=== PATIENT | female | born 1945 | race Two or more races ===

== ENCOUNTER → 2022-04-08 | Outpatient (CLI) | payer OTHER ==
[2022-04-08 07:56] LABS: Urine Blood 3+ /uL (Negative); Urine Specific Gravity 1.018 (1.001-1.035)
[2022-04-08 08:03] LABS: Basophils # (auto) 0 10 ^3/uL (0-0.2); Basophils % (auto) 0.6 % (0.0-2.0); Eosinophils # (auto) 0.2 10 ^3/uL (0-0.8); Eosinophils % (auto) 2.2 % (0.0-7.0); Hematocrit 37.8 % (36.0-46.0); Hemoglobin 12.6 g/dL (12.2-16.2); Lymphocytes # (auto) 1.6 10 ^3/uL (0.4-5.4); Lymphocytes % (auto) 22.5 % (10.0-50.0); Mean Corpuscular Hemoglobin 30.9 pg (28.0-32.0); Mean Corpuscular Hgb Conc. 33.4 g/dL (32.0-36.0); Mean Corpuscular Volume 92.6 fL (80.0-100.0); Monocytes # (auto) 0.6 10 ^3/uL (0-1.3); Monocytes % (auto) 8.6 % (0.0-12.0); Neutrophils # (auto) 4.8 10 ^3/uL (1.6-8.6); Neutrophils % (auto) 66.1 % (37.0-80.0); Red Blood Cells 4.08 10^6/uL (4.0-5.20); Red Cell Distribution Width 13.9 % (11.8-14.3); White Blood Cell 7.3 10^3/uL (4.4-10.8)
[2022-04-08 08:23] LABS: Potassium 4.6 mmol/L (3.5-5.1)
[2022-04-08 08:37] LABS: Albumin 3.3 g/dL (3.4-5.0); BUN/Creatinine Ratio 23.9; Bilirubin, Total 0.6 mg/dL (0.2-1.0); Calcium 9.2 mg/dL (8.5-10.1); Total Protein 7.6 g/dL (6.4-8.2)
== END | disposition home or self-care (01) ==
LOC: LAB 07:21
PROVIDERS: ATTEND Internal Medicine
DX: I10 Essential (primary) hypertension (principal); E78.5 Hyperlipidemia, unspecified
CPT/HCPCS: 36415; 80053; 80061; 81001; 83036; 84439; 84443; 85025

== ENCOUNTER → 2022-09-30 | Outpatient (CLI) | payer OTHER ==
[~2022-09-30] MED LIST: ALBUAER3 IN; AZIT500T66 PO; BENZ100C97 PO; DOXY100T2; LOSA25TA15 PO; PRAV20TA3 PO; PRED20TA2 PO
== END | disposition home or self-care (01) ==
LOC: LAB 15:27
PROVIDERS: ATTEND Internal Medicine
DX: Z01.10 Encounter for examination of ears and hearing without abnormal findings (principal)
CPT/HCPCS: 36415; 82565; 84520

== ENCOUNTER → 2022-10-09 | Outpatient (CLI) | payer OTHER | END | disposition home or self-care (01) | LOC: LAB 15:24 | PROVIDERS: ATTEND Internal Medicine | DX: Z01.812 Encounter for preprocedural laboratory examination (principal) | CPT/HCPCS: 36415; 82565; 84520 ==

== ENCOUNTER 2022-12-18 10:30 | Emergency (ER) | payer OTHER ==
[~2022-12-18] VITALS: Ht 149.9 cm; Wt 69.1 kg
[2022-12-18 11:46] LABS: Urine Bacteria NONE SEEN /hpf (None Seen); Urine Blood 2+ /uL (Negative); Urine Clarity Clear (Clear); Urine Color Yellow (Yellow); Urine Protein, UAD Negative (Negative); Urine Specific Gravity 1.019 (1.001-1.035); Urine Urobilinogen Normal (Negative); Urine WBC 1 /hpf (0 - 5)
[2022-12-18 12:21] LABS: Basophils # (auto) 0 10 ^3/uL (0-0.2); Basophils % (auto) 0.5 % (0.0-2.0); Eosinophils # (auto) 0.1 10 ^3/uL (0-0.8); Eosinophils % (auto) 1.1 % (0.0-7.0); Hematocrit 44.9 % (36.0-46.0); Hemoglobin 14.9 g/dL (12.2-16.2); Lymphocytes % (auto) 15.5 % (10.0-50.0); Mean Corpuscular Hemoglobin 31.2 pg (28.0-32.0); Mean Corpuscular Hgb Conc. 33.1 g/dL (32.0-36.0); Mean Corpuscular Volume 94.4 fL (80.0-100.0); Monocytes # (auto) 0.9 10 ^3/uL (0-1.3); Monocytes % (auto) 14.5 % (0.0-12.0); Neutrophils # (auto) 4.4 10 ^3/uL (1.6-8.6); Neutrophils % (auto) 68.4 % (37.0-80.0); Red Blood Cells 4.76 10^6/uL (4.0-5.20); Red Cell Distribution Width 13.8 % (11.8-14.3); White Blood Cell 6.4 10^3/uL (4.4-10.8)
[2022-12-18 13:17] LABS: Alanine Aminotransferase 14 U/L (7-40); Albumin 4.8 g/dL (3.2-4.8); Alkaline Phosphatase 129 U/L (46-116); Anion Gap 7.6 (5-15); Aspartate Aminotransferase 21 U/L (13-40); BUN/Creatinine Ratio 13.1 (10.0-20.0); Bilirubin, Total 0.5 mg/dL (0.2-1.0); Blood Urea Nitrogen 8 mg/dL (9-23); Calcium 9.5 mg/dL (8.5-10.1); Carbon Dioxide 27.4 mmol/L (20-30); Chloride 104 mmol/L (98-107); Glucose 87 mg/dL (74-106); Potassium 3.9 mmol/L (3.5-5.1); Sodium 139 mmol/L (136-145); Total Protein 7.9 g/dL (5.7-8.2)
[2022-12-18 16:09] LABS: Rapid Strep A Screen-Throat Negative
[2022-12-18 16:24] LABS: COVID19 ANTIGEN SOFIA FIA NEGATIVE (NEGATIVE); Rapid Influenza A Negative (Negative); Rapid Influenza B Negative (Negative)
[2022-12-18] MEDS ORDERED: SODIUM CHLORIDE 0.9% 1,000 ML IV ONE (16:45)
[2022-12-18] MEDS ORDERED: DexAMETHasone SOD PHOS 10MG/1ML VIAL INJ IM ONE (17:00)
[2022-12-18] MEDS ORDERED: ACETAMINOPHEN 325 MG TAB PO ONE (17:00)
[2022-12-18 18:54] VITALS: BP 143/71; PULSE 81; RESP 17; TEMP 98.3; O2SAT 97
== END 2022-12-18 19:00 | disposition home or self-care (01) ==
LOC: ER 10:30
DX: J02.9 Acute pharyngitis, unspecified (principal); I10 Essential (primary) hypertension; R50.9 Fever, unspecified; E78.5 Hyperlipidemia, unspecified; Z20.822 Contact with and (suspected) exposure to COVID-19
CPT/HCPCS: 36415; 71045; 80053; 81001; 83605; 84484; 85025; 87040; 87070; 87426; 87804; 87880; 93005; 96360; 96372; 99285; J1100; J7030

== ENCOUNTER 2022-12-25 16:41 | Inpatient (IN) | payer OTHER ==
[~2022-12-25] VITALS: Ht 149.9 cm
[2022-12-25 18:03] LABS: Basophils # (auto) 0 10 ^3/uL (0-0.2); Basophils % (auto) 0.1 % (0.0-2.0); Eosinophils # (auto) 0.1 10 ^3/uL (0-0.8); Eosinophils % (auto) 0.4 % (0.0-7.0); Hematocrit 42.5 % (36.0-46.0); Hemoglobin 14.4 g/dL (12.2-16.2); Lymphocytes # (auto) 2.2 10 ^3/uL (0.4-5.4); Lymphocytes % (auto) 15.8 % (10.0-50.0); Mean Corpuscular Hemoglobin 31.4 pg (28.0-32.0); Mean Corpuscular Hgb Conc. 33.8 g/dL (32.0-36.0); Monocytes # (auto) 1.1 10 ^3/uL (0-1.3); Monocytes % (auto) 7.9 % (0.0-12.0); Neutrophils # (auto) 10.6 10 ^3/uL (1.6-8.6); Neutrophils % (auto) 75.8 % (37.0-80.0); Red Blood Cells 4.57 10^6/uL (4.0-5.20); Red Cell Distribution Width 13.9 % (11.8-14.3)
[2022-12-25 18:40] LABS: Urine Bacteria NONE SEEN /hpf (None Seen); Urine Blood 2+ /uL (Negative); Urine Clarity Clear (Clear); Urine Color Colorless (Yellow); Urine Protein, UAD Negative (Negative); Urine Specific Gravity 1.003 (1.001-1.035); Urine Urobilinogen Normal (Negative); Urine WBC 1 /hpf (0 - 5); Urine pH 6.5 (5.0-8.0)
[2022-12-25 18:49] LABS: Alanine Aminotransferase 10 U/L (7-40); Alkaline Phosphatase 121 U/L (46-116); Anion Gap 5.9 (5-15); Aspartate Aminotransferase 12 U/L (13-40); BUN/Creatinine Ratio 10.6 (10.0-20.0); Blood Urea Nitrogen 7 mg/dL (9-23); Calcium 9.5 mg/dL (8.7-10.4); Carbon Dioxide 25.1 mmol/L (20-30); Chloride 104 mmol/L (98-107); Glucose 106 mg/dL (74-106); Sodium 135 mmol/L (136-145)
[2022-12-25 18:50] LABS: Albumin 4.9 g/dL (3.2-4.8)
[2022-12-25 19:04] LABS: Magnesium 2.1 mg/dL (1.6-2.6)
[2022-12-25 19:47] LABS: COVID19 ANTIGEN SOFIA FIA NEGATIVE (NEGATIVE); Rapid Influenza A Negative (Negative); Rapid Influenza B Negative (Negative)
[2022-12-25] MEDS ORDERED: IOHEXOL 350 MG/ML 100ML IJ ONE (20:21)
[2022-12-25] MEDS ORDERED: NITROGLYCERIN 0.4 MG SL TAB SL ONE (20:30)
[2022-12-25] MEDS ORDERED: ASPirin 325 MG TAB PO ONE (20:30)
[2022-12-25] MEDS ORDERED: DexAMETHasone SOD PHOS 10MG/1ML VIAL INJ IV ONE (21:45)
[2022-12-25] MEDS ORDERED: guaiFENesin 200 MG/10 ML UD GT PRN (23:00)
[2022-12-25] MEDS ORDERED: HYDROcodone-ACET 5/325MG TAB PO PRN (23:00)
[2022-12-25] MEDS ORDERED: HYDROcodone-ACET 10/325MG TAB PO PRN (23:00)
[2022-12-25] MEDS ORDERED: ACETAMINOPHEN 325 MG TAB PO PRN (23:00)
[2022-12-25] MEDS ORDERED: AZITHROMYCIN 500MG/ 250ML 250 ML IV ONE (23:00)
[2022-12-25] MEDS ORDERED: ACETAMINOPHEN 325 MG TAB PO ONE (23:00)
[2022-12-26] VITALS (10 sets, daily range): BP systolic 118–133; BP diastolic 74–78; PULSE 64–102; RESP 14–20; TEMP 98.1–98.3; O2SAT 92–100
[2022-12-26] MEDS: IPRATROPIUM BROM 0.5 MG/2.5ML INH SOL NEB SCH ×3 (06:01→18:51)
[2022-12-26] MEDS: ALBUTEROL SULF 2.5 MG/0.5ML(0.5%) NEB SOLN NEB SCH ×3 (06:01→18:51)
[2022-12-26 06:56] LABS: Basophils # (auto) 0 10 ^3/uL (0-0.2); Basophils % (auto) 0.1 % (0.0-2.0); Eosinophils # (auto) 0 10 ^3/uL (0-0.8); Eosinophils % (auto) 0.2 % (0.0-7.0); Hematocrit 41.7 % (36.0-46.0); Lymphocytes # (auto) 1.2 10 ^3/uL (0.4-5.4); Lymphocytes % (auto) 11.5 % (10.0-50.0); Mean Corpuscular Hemoglobin 31.3 pg (28.0-32.0); Mean Corpuscular Hgb Conc. 33.4 g/dL (32.0-36.0); Mean Corpuscular Volume 93.7 fL (80.0-100.0); Monocytes # (auto) 0.2 10 ^3/uL (0-1.3); Monocytes % (auto) 1.6 % (0.0-12.0); Neutrophils # (auto) 9.1 10 ^3/uL (1.6-8.6); Neutrophils % (auto) 86.6 % (37.0-80.0); Nucleated Red Blood Cells % 0.1 %; Red Blood Cells 4.46 10^6/uL (4.0-5.20); White Blood Cell 10.5 10^3/uL (4.4-10.8)
[2022-12-26 07:03] LABS: Albumin 4.8 g/dL (3.2-4.8); Alkaline Phosphatase 118 U/L (46-116); Anion Gap 6.6 (5-15); Aspartate Aminotransferase 10 U/L (13-40); BUN/Creatinine Ratio 8.2 (10.0-20.0); Blood Urea Nitrogen 8 mg/dL (9-23); Calcium 9.6 mg/dL (8.7-10.4); Carbon Dioxide 27.4 mmol/L (20-30); Chloride 103 mmol/L (98-107); Cholesterol 175 mg/dL (< 200); Glucose 134 mg/dL (74-106); LDL Cholesterol 121 mg/dL (< 100); Sodium 137 mmol/L (136-145); Triglycerides 93 mg/dL (< 150)
[2022-12-26 07:04] LABS: Bilirubin, Total 1.2 mg/dL (0.2-1.0); Total Protein 7.9 g/dL (5.7-8.2)
[2022-12-26 07:12] LABS: Alanine Aminotransferase 9 U/L (7-40)
[2022-12-26 07:24] LABS: HDL Cholesterol 54 mg/dL (40-59)
[2022-12-26] MEDS ORDERED: methylPREDNISolone SOD SUCC 40 MG/ML VL IV SCH ×2 (10:00→22:00)
[2022-12-26] MEDS: PANTOPRAZOLE 40 MG TAB PO SCH (10:28)
[2022-12-26 13:08] LABS: INR 1.08 (0.9-1.15); Prothrombin Time 11.3 sec (9.3-11.8)
[2022-12-26] MEDS ORDERED: ATORVASTATIN 20 MG TAB PO SCH (22:00)
[2022-12-26] MEDS ORDERED: AZITHROMYCIN 500MG/ 250ML 250 ML IV SCH (22:00)
[2022-12-26] MEDS ORDERED: PRAVASTATIN SODIUM 20 MG TAB PO SCH (22:00)
[2022-12-27 05:00] VITALS: BP 103/54; PULSE 73; RESP 16; TEMP 98.1; O2SAT 94
[2022-12-27 06:41] LABS: Basophils # (auto) 0 10 ^3/uL (0-0.2); Eosinophils # (auto) 0 10 ^3/uL (0-0.8); Hematocrit 41.3 % (36.0-46.0); Hemoglobin 13.7 g/dL (12.2-16.2); Lymphocytes # (auto) 1.1 10 ^3/uL (0.4-5.4); Lymphocytes % (auto) 6.3 % (10.0-50.0); Mean Corpuscular Hgb Conc. 33.2 g/dL (32.0-36.0); Mean Corpuscular Volume 93.5 fL (80.0-100.0); Monocytes # (auto) 0.5 10 ^3/uL (0-1.3); Monocytes % (auto) 2.6 % (0.0-12.0); Neutrophils # (auto) 16.1 10 ^3/uL (1.6-8.6); Neutrophils % (auto) 91.1 % (37.0-80.0); Red Blood Cells 4.42 10^6/uL (4.0-5.20); Red Cell Distribution Width 13.7 % (11.8-14.3); White Blood Cell 17.7 10^3/uL (4.4-10.8)
[2022-12-27 06:48] LABS: Alanine Aminotransferase 10 U/L (7-40); Alkaline Phosphatase 111 U/L (46-116); Anion Gap 9.6 (5-15); BUN/Creatinine Ratio 22.1 (10.0-20.0); Blood Urea Nitrogen 15 mg/dL (9-23); Calcium 9.8 mg/dL (8.7-10.4); Carbon Dioxide 22.4 mmol/L (20-30); Chloride 106 mmol/L (98-107); Glucose 144 mg/dL (74-106); Potassium 4.1 mmol/L (3.5-5.1); Sodium 138 mmol/L (136-145)
[2022-12-27 06:49] LABS: Albumin 4.7 g/dL (3.2-4.8); Aspartate Aminotransferase < 8 U/L (13-40); Bilirubin, Total 0.6 mg/dL (0.2-1.0); Total Protein 7.7 g/dL (5.7-8.2)
[2022-12-27 07:27] LABS: Magnesium 2.3 mg/dL (1.6-2.6)
[2022-12-27 08:00] VITALS: BP 149/76; PULSE 72; RESP 14; TEMP 97.9; O2SAT 93
[2022-12-27 08:30] VITALS: PULSE 85; RESP 16; O2SAT 95
[2022-12-27] MEDS: IPRATROPIUM BROM 0.5 MG/2.5ML INH SOL NEB SCH ×2 (08:30→12:45)
[2022-12-27] MEDS: ALBUTEROL SULF 2.5 MG/0.5ML(0.5%) NEB SOLN NEB SCH ×2 (08:30→12:45)
[2022-12-27 08:37] VITALS: PULSE 84; RESP 18; O2SAT 99
[2022-12-27 09:16] LABS: Erythrocyte Sedimentation Rate 44 mm/hr (0-20)
[2022-12-27] MEDS: PANTOPRAZOLE 40 MG TAB PO SCH (09:55)
[2022-12-27] MEDS ORDERED: predniSONE 20 MG TAB PO SCH (10:00)
[2022-12-27] MEDS ORDERED: PRED20TA2 PO (11:28)
[2022-12-27 12:00] VITALS: BP 129/64; PULSE 90; RESP 22; TEMP 98.1; O2SAT 93
[2022-12-27 16:00] VITALS: BP 117/66; PULSE 84; RESP 18; TEMP 98.1; O2SAT 94
== END 2022-12-27 17:30 | disposition home or self-care (01) | DRG 196 ==
LOC: ER 16:41 → OVERFLOW 22:58 → CENTRAL 12-26 14:46
PROVIDERS: ADMIT Nurse Practitioner Family; ATTEND Internal Medicine Pulmonary Disease
DX: J84.10 Pulmonary fibrosis, unspecified (principal); J96.21 Acute and chronic respiratory failure with hypoxia; J06.9 Acute upper respiratory infection, unspecified; E78.5 Hyperlipidemia, unspecified; Z20.822 Contact with and (suspected) exposure to COVID-19; I99.8 Other disorder of circulatory system; I27.20 Pulmonary hypertension, unspecified; Z88.8 Allergy status to other drugs, medicaments and biological substances
CPT/HCPCS: 36415; 71046; 71250; 80053; 80061; 81001; 82550; 83605; 83690; 83735; 84443; 84484; 85025; 85379; 85610; 85652; 86308; 87040; 87426; 87804; 93970; 94640; G0378; J1100

== ENCOUNTER → 2023-03-11 | Outpatient (CLI) | payer OTHER ==
[~2023-03-11] MED LIST changes: -ALBUAER3 IN; +ALBUTEROL MEDNEB 2.5 mg/3ml NEB ONE; -AZIT500T66 PO; -BENZ100C97 PO; -DOXY100T2; -LOSA25TA15 PO
== END | disposition home or self-care (01) ==
LOC: RT 10:58
PROVIDERS: ATTEND Internal Medicine Pulmonary Disease
DX: J84.10 Pulmonary fibrosis, unspecified (principal); R06.09 Other forms of dyspnea
CPT/HCPCS: 94060; 94727; 94729

== ENCOUNTER 2023-04-26 18:33 | Emergency (ER) | payer OTHER ==
[~2023-04-26] VITALS: Ht 149.9 cm; Wt 70.5 kg
[~2023-04-26 18:33] MED LIST changes: -ALBUTEROL MEDNEB 2.5 mg/3ml NEB ONE
[2023-04-26] MEDS ORDERED: LABETALOL HCL 5 MG/ML 4ML SYRINGE IV ONE (19:45)
[2023-04-26 19:52] VITALS: TEMP 98.1
[2023-04-26 19:54] LABS: Basophils # (auto) 0 10 ^3/uL (0-0.2); Basophils % (auto) 0.4 % (0.0-2.0); Eosinophils # (auto) 0.2 10 ^3/uL (0-0.8); Eosinophils % (auto) 1.7 % (0.0-7.0); Hematocrit 44.6 % (36.0-46.0); Hemoglobin 14.6 g/dL (12.2-16.2); Lymphocytes # (auto) 1.8 10 ^3/uL (0.4-5.4); Lymphocytes % (auto) 20.6 % (10.0-50.0); Mean Corpuscular Hemoglobin 30.9 pg (28.0-32.0); Mean Corpuscular Hgb Conc. 32.7 g/dL (32.0-36.0); Mean Corpuscular Volume 94.5 fL (80.0-100.0); Monocytes # (auto) 0.7 10 ^3/uL (0-1.3); Monocytes % (auto) 8.4 % (0.0-12.0); Neutrophils # (auto) 6.1 10 ^3/uL (1.6-8.6); Neutrophils % (auto) 68.9 % (37.0-80.0); Nucleated Red Blood Cells % 0.1 %; Red Blood Cells 4.72 10^6/uL (4.0-5.20); Red Cell Distribution Width 13.8 % (11.8-14.3); White Blood Cell 8.8 10^3/uL (4.4-10.8)
[2023-04-26] MEDS ORDERED: MECLIZINE HCL 25 MG TAB PO ONE (20:00)
[2023-04-26 20:05] VITALS: PULSE 93; RESP 25; O2SAT 95
[2023-04-26 20:11] LABS: Alanine Aminotransferase 11 U/L (7-40); Albumin 4.9 g/dL (3.2-4.8); Alkaline Phosphatase 120 U/L (46-116); Anion Gap 11 (5-15); Aspartate Aminotransferase 18 U/L (13-40); BUN/Creatinine Ratio 15.4 (10.0-20.0); Bilirubin, Total 0.4 mg/dL (0.2-1.0); Blood Urea Nitrogen 10 mg/dL (9-23); Calcium 9.5 mg/dL (8.7-10.4); Carbon Dioxide 22 mmol/L (20-30); Chloride 106 mmol/L (98-107); Glucose 93 mg/dL (74-106); Potassium 4.2 mmol/L (3.5-5.1); Sodium 139 mmol/L (136-145); Total Protein 7.9 g/dL (5.7-8.2)
[2023-04-26] MEDS ORDERED: MECL1TAB31 PO (22:27)
[2023-04-26] MEDS ORDERED: ZOFR4T PO (22:27)
[2023-04-26 22:45] VITALS: BP 141/73; PULSE 93; RESP 22; O2SAT 93
[2023-04-27 00:45] LABS: Urine Bacteria FEW /hpf (None Seen); Urine Blood 1+ /uL (Negative); Urine Clarity HAZY (Clear); Urine Protein, UAD Negative (Negative); Urine Specific Gravity 1.004 (1.001-1.035); Urine Urobilinogen Normal (Negative); Urine WBC 1 /hpf (0 - 5); Urine pH 6.5 (5.0-8.0)
[2023-04-27 00:51] LABS: Urine Color Straw (Yellow)
== END 2023-04-26 23:10 | disposition home or self-care (01) ==
LOC: ER 18:33
DX: I10 Essential (primary) hypertension (principal); R42 Dizziness and giddiness; E78.5 Hyperlipidemia, unspecified
CPT/HCPCS: 36415; 70450; 70551; 80053; 81001; 82962; 85025; 93005; 96374; 99285; J3490; J8597

== ENCOUNTER 2023-06-16 11:05 | Inpatient (IN) | payer OTHER ==
[~2023-06-16] VITALS: Ht 144.8 cm; Wt 69.8 kg
[~2023-06-16 11:05] MED LIST changes: +MECL1TAB31 PO; +ZOFR4T PO
[2023-06-16 12:00] LABS: Basophils # (auto) 0 10 ^3/uL (0-0.2); Basophils % (auto) 0.4 % (0.0-2.0); Eosinophils # (auto) 0.1 10 ^3/uL (0-0.8); Eosinophils % (auto) 0.9 % (0.0-7.0); Hematocrit 41.8 % (36.0-46.0); Hemoglobin 13.7 g/dL (12.2-16.2); Lymphocytes # (auto) 1.8 10 ^3/uL (0.4-5.4); Lymphocytes % (auto) 20.1 % (10.0-50.0); Mean Corpuscular Hemoglobin 31.7 pg (28.0-32.0); Mean Corpuscular Hgb Conc. 32.8 g/dL (32.0-36.0); Mean Corpuscular Volume 96.8 fL (80.0-100.0); Monocytes # (auto) 0.7 10 ^3/uL (0-1.3); Monocytes % (auto) 7.4 % (0.0-12.0); Neutrophils # (auto) 6.5 10 ^3/uL (1.6-8.6); Neutrophils % (auto) 71.2 % (37.0-80.0); Red Blood Cells 4.32 10^6/uL (4.0-5.20); Red Cell Distribution Width 14.8 % (11.8-14.3); White Blood Cell 9.1 10^3/uL (4.4-10.8)
[2023-06-16 12:11] LABS: Alanine Aminotransferase 11 U/L (7-40); Albumin 4.5 g/dL (3.2-4.8); Alkaline Phosphatase 95 U/L (46-116); Anion Gap 8 (5-15); Aspartate Aminotransferase 24 U/L (13-40); BUN/Creatinine Ratio 19.7 (10.0-20.0); Blood Urea Nitrogen 14 mg/dL (9-23); Calcium 9.5 mg/dL (8.5-10.1); Carbon Dioxide 27 mmol/L (20-30); Chloride 105 mmol/L (98-107); Glucose 101 mg/dL (74-106); Potassium 4.7 mmol/L (3.5-5.1); Sodium 140 mmol/L (136-145)
[2023-06-16 12:12] LABS: Bilirubin, Total 0.6 mg/dL (0.2-1.0); INR 1.07 (0.9-1.15); Partial Thromboplastin Time 27.7 SEC (24.5-34.5); Prothrombin Time 11.2 sec (9.3-11.8); Total Protein 6.8 g/dL (5.7-8.2)
[2023-06-16] MEDS ORDERED: ALBUTEROL SULF 2.5 MG/0.5ML(0.5%) NEB SOLN NEB PRN (14:00)
[2023-06-16] MEDS ORDERED: MORPHINE SULFATE INJ 2 MG/ml SYRG IV PRN (14:00)
[2023-06-16] MEDS ORDERED: IPRATROPIUM BROM 0.5 MG/2.5ML INH SOL NEB PRN (14:00)
[2023-06-16] MEDS ORDERED: DOCUSATE SOD 100 MG CAP PO PRN (14:00)
[2023-06-16 14:44] VITALS: PULSE 114; RESP 18; O2SAT 95
[2023-06-16] MEDS: ALBUTEROL SULF 2.5 MG/0.5ML(0.5%) NEB SOLN ONE (15:23)
[2023-06-16] MEDS: IPRATROPIUM BROM 0.5 MG/2.5ML INH SOL ONE (15:23)
[2023-06-16] MEDS: SODIUM CHLORIDE 0.9% 1,000 ML IV SCH (15:51)
[2023-06-17] VITALS (7 sets, daily range): BP systolic 112–158; BP diastolic 58–80; PULSE 57–80; RESP 15–20; TEMP 78.4–98.4; O2SAT 94–98
[2023-06-17] MEDS: cloNIDine HCL 0.1 MG TAB PO ONE (01:29)
[2023-06-17 06:54] LABS: Basophils # (auto) 0 10 ^3/uL (0-0.2); Basophils % (auto) 0.5 % (0.0-2.0); Eosinophils # (auto) 0.1 10 ^3/uL (0-0.8); Eosinophils % (auto) 1.4 % (0.0-7.0); Hematocrit 35.7 % (36.0-46.0); Hemoglobin 11.9 g/dL (12.2-16.2); Lymphocytes % (auto) 27.7 % (10.0-50.0); Mean Corpuscular Hemoglobin 32.3 pg (28.0-32.0); Mean Corpuscular Hgb Conc. 33.3 g/dL (32.0-36.0); Mean Corpuscular Volume 97.1 fL (80.0-100.0); Monocytes # (auto) 0.7 10 ^3/uL (0-1.3); Neutrophils # (auto) 4.5 10 ^3/uL (1.6-8.6); Neutrophils % (auto) 61.4 % (37.0-80.0); Red Blood Cells 3.68 10^6/uL (4.0-5.20); White Blood Cell 7.3 10^3/uL (4.4-10.8)
[2023-06-17 06:56] LABS: Albumin 3.7 g/dL (3.2-4.8); Alkaline Phosphatase 75 U/L (46-116); Anion Gap 9 (5-15); Aspartate Aminotransferase 19 U/L (13-40); BUN/Creatinine Ratio 22.8 (10.0-20.0); Blood Urea Nitrogen 13 mg/dL (9-23); Carbon Dioxide 24 mmol/L (20-30); Chloride 107 mmol/L (98-107); Glucose 78 mg/dL (74-106); Potassium 3.9 mmol/L (3.5-5.1); Sodium 140 mmol/L (136-145)
[2023-06-17 06:57] LABS: Alanine Aminotransferase 9 U/L (7-40); Bilirubin, Total 0.8 mg/dL (0.2-1.0); Total Protein 5.8 g/dL (5.7-8.2)
[2023-06-17] MEDS: PRAVASTATIN SODIUM 20 MG TAB PO SCH (09:37)
[2023-06-17] MEDS: ONDANSETRON HCL 4 MG/2 ML VIAL IV PRN (09:38)
[2023-06-17] MEDS: PANTOPRAZOLE 40 MG/10 ML VIAL INJ IV SCH (09:38)
[2023-06-17 11:14] LABS: Urine WBC None Seen /hpf (0 - 5)
[2023-06-17 11:25] LABS: Amphetamine Screen, Urine Neg (NEGATIVE); Barbiturate Scree,Urine Neg (NEGATIVE); Benzodiazephine Screen, Urine Neg (NEGATIVE); Cannabinoid Screen, Urine Neg (NEGATIVE); Cocaine Screen, Urine Neg (NEGATIVE); Opiate Scree,Urine Neg (NEGATIVE); Phencyclidine Screen, Urine Neg (NEGATIVE)
[2023-06-17 11:39] LABS: Triglycerides 124 mg/dL (< 150)
[2023-06-17 11:40] LABS: LDL Cholesterol 110 mg/dL (< 100)
[2023-06-17 11:41] LABS: Cholesterol 176 mg/dL (< 200); HDL Cholesterol 49 mg/dL (40-59)
[2023-06-17] MEDS: ACETAMINOPHEN 325 MG TAB PO PRN (12:08)
[2023-06-17 12:14] LABS: Urine Bacteria NONE SEEN /hpf (None Seen); Urine Blood TRACE /uL (Negative); Urine Clarity Clear (Clear); Urine Protein, UAD Negative (Negative); Urine Specific Gravity 1.004 (1.001-1.035); Urine Urobilinogen Normal (Negative); Urine pH 5.5 (5.0-8.0)
[2023-06-17 12:17] LABS: Urine Color Straw (Yellow)
[2023-06-17] MEDS: GOLYTELY 4L KIT PO ONE ×2 (15:33→21:30)
[2023-06-17] MEDS: MAGNESIUM CITRATE SOLUTION 300 ML BTL PO ONE (22:31)
[2023-06-18] VITALS (8 sets, daily range): BP systolic 117–176; BP diastolic 63–83; PULSE 66–82; RESP 17–20; TEMP 97.9–98.3; O2SAT 93–100
[2023-06-18] MEDS: MAGNESIUM CITRATE SOLUTION 300 ML BTL PO ONE (06:00)
[2023-06-18 06:03] LABS: Basophils # (auto) 0 10 ^3/uL (0-0.2); Basophils % (auto) 0.3 % (0.0-2.0); Eosinophils # (auto) 0.1 10 ^3/uL (0-0.8); Eosinophils % (auto) 1.1 % (0.0-7.0); Hematocrit 37.1 % (36.0-46.0); Hemoglobin 12.1 g/dL (12.2-16.2); Lymphocytes # (auto) 1.9 10 ^3/uL (0.4-5.4); Lymphocytes % (auto) 27.7 % (10.0-50.0); Mean Corpuscular Hemoglobin 32.1 pg (28.0-32.0); Mean Corpuscular Hgb Conc. 32.5 g/dL (32.0-36.0); Mean Corpuscular Volume 98.8 fL (80.0-100.0); Monocytes # (auto) 0.6 10 ^3/uL (0-1.3); Monocytes % (auto) 9.4 % (0.0-12.0); Neutrophils # (auto) 4.1 10 ^3/uL (1.6-8.6); Neutrophils % (auto) 61.5 % (37.0-80.0); Red Blood Cells 3.76 10^6/uL (4.0-5.20); White Blood Cell 6.7 10^3/uL (4.4-10.8)
[2023-06-18 06:12] LABS: Albumin 3.9 g/dL (3.2-4.8); Alkaline Phosphatase 78 U/L (46-116); Anion Gap 8 (5-15); Aspartate Aminotransferase 22 U/L (13-40); Calcium 8.8 mg/dL (8.5-10.1); Carbon Dioxide 24 mmol/L (20-30); Chloride 109 mmol/L (98-107); Glucose 80 mg/dL (74-106); Potassium 3.8 mmol/L (3.5-5.1); Sodium 141 mmol/L (136-145)
[2023-06-18 06:13] LABS: Bilirubin, Total 0.7 mg/dL (0.2-1.0); Total Protein 6.1 g/dL (5.7-8.2)
[2023-06-18 06:18] LABS: Alanine Aminotransferase < 9 U/L (7-40); BUN/Creatinine Ratio 9.1 (10.0-20.0); Blood Urea Nitrogen < 5 mg/dL (9-23)
[2023-06-18] MEDS: GOLYTELY 4L KIT PO ONE (06:51)
[2023-06-18] MEDS ORDERED: SODIUM CHLORIDE LOCK 10 ML ONE (09:12)
[2023-06-18] MEDS: LISINOPRIL 20 MG TAB PO ONE (11:34)
[2023-06-18] MEDS: fentaNYL CITRATE 100 MCG/2 ML VL ONE (15:52)
[2023-06-18] MEDS: diphenhdrAMINE HCL 50 MG/1 ML VL ONE (15:52)
[2023-06-18] MEDS: MIDAZOLAM HCL 5 MG/ML-1ML VIAL ONE (15:52)
[2023-06-19 05:00] VITALS: BP 149/71; PULSE 85; RESP 16; TEMP 97.5; O2SAT 94
[2023-06-19 06:45] LABS: Alanine Aminotransferase 13 U/L (7-40); Alkaline Phosphatase 79 U/L (46-116); Anion Gap 15 (5-15); BUN/Creatinine Ratio 17.2 (10.0-20.0); Blood Urea Nitrogen 10 mg/dL (9-23); Calcium 8.7 mg/dL (8.7-10.4); Carbon Dioxide 18 mmol/L (20-30); Chloride 107 mmol/L (98-107); Glucose 50 mg/dL (74-106); Potassium 3.8 mmol/L (3.5-5.1); Sodium 140 mmol/L (136-145)
[2023-06-19 06:46] LABS: Albumin 3.9 g/dL (3.2-4.8); Aspartate Aminotransferase 26 U/L (13-40); Bilirubin, Total 0.6 mg/dL (0.2-1.0); Total Protein 6.1 g/dL (5.7-8.2)
[2023-06-19 07:13] LABS: Basophils # (auto) 0 10 ^3/uL (0-0.2); Basophils % (auto) 0.4 % (0.0-2.0); Eosinophils # (auto) 0.1 10 ^3/uL (0-0.8); Hematocrit 38.5 % (36.0-46.0); Hemoglobin 12.6 g/dL (12.2-16.2); Lymphocytes # (auto) 1.8 10 ^3/uL (0.4-5.4); Lymphocytes % (auto) 22.9 % (10.0-50.0); Mean Corpuscular Hemoglobin 32.4 pg (28.0-32.0); Mean Corpuscular Hgb Conc. 32.8 g/dL (32.0-36.0); Mean Corpuscular Volume 98.7 fL (80.0-100.0); Monocytes # (auto) 0.5 10 ^3/uL (0-1.3); Monocytes % (auto) 6.8 % (0.0-12.0); Neutrophils # (auto) 5.4 10 ^3/uL (1.6-8.6); Neutrophils % (auto) 68.9 % (37.0-80.0); White Blood Cell 7.8 10^3/uL (4.4-10.8)
[2023-06-19 08:35] VITALS: BP 115/56; PULSE 68; RESP 17; TEMP 98; O2SAT 91
[2023-06-19] MEDS: LISINOPRIL 20 MG TAB PO SCH (09:45)
[2023-06-19 12:56] VITALS: BP 124/66; PULSE 88; RESP 17; TEMP 98; O2SAT 93
[2023-06-19 17:00] VITALS: BP 170/84; PULSE 81; RESP 17; TEMP 98.2; O2SAT 93
[2023-06-19 20:00] VITALS: BP 161/78; PULSE 83; RESP 18; TEMP 98.5
[2023-06-19 22:00] VITALS: BP 161/78; PULSE 83; RESP 18; TEMP 98.5; O2SAT 94
[2023-06-20 05:00] VITALS: BP 168/77; PULSE 67; RESP 17; TEMP 98.1; O2SAT 95
[2023-06-20] MEDS: hydrALAZINE HCL 20 MG/ML VL IV PRN (05:45)
[2023-06-20 06:54] LABS: Alanine Aminotransferase 10 U/L (7-40); Albumin 4.2 g/dL (3.2-4.8); Alkaline Phosphatase 85 U/L (46-116); Anion Gap 9 (5-15); Aspartate Aminotransferase 28 U/L (13-40); Bilirubin, Total 0.9 mg/dL (0.2-1.0); Calcium 9.5 mg/dL (8.5-10.1); Carbon Dioxide 26 mmol/L (20-30); Chloride 104 mmol/L (98-107); Glucose 86 mg/dL (74-106); Potassium 3.7 mmol/L (3.5-5.1); Sodium 139 mmol/L (136-145)
[2023-06-20 06:59] LABS: BUN/Creatinine Ratio 8.1 (10.0-20.0); Blood Urea Nitrogen < 5 mg/dL (9-23)
[2023-06-20 07:00] LABS: Basophils # (auto) 0 10 ^3/uL (0-0.2); Basophils % (auto) 0.4 % (0.0-2.0); Eosinophils # (auto) 0.1 10 ^3/uL (0-0.8); Hematocrit 37.9 % (36.0-46.0); Hemoglobin 12.8 g/dL (12.2-16.2); Lymphocytes # (auto) 1.9 10 ^3/uL (0.4-5.4); Lymphocytes % (auto) 22.8 % (10.0-50.0); Mean Corpuscular Hemoglobin 32.3 pg (28.0-32.0); Mean Corpuscular Hgb Conc. 33.9 g/dL (32.0-36.0); Mean Corpuscular Volume 95.3 fL (80.0-100.0); Monocytes # (auto) 0.8 10 ^3/uL (0-1.3); Monocytes % (auto) 9.7 % (0.0-12.0); Neutrophils # (auto) 5.4 10 ^3/uL (1.6-8.6); Neutrophils % (auto) 66.1 % (37.0-80.0); Nucleated Red Blood Cells % 0.1 %; Red Blood Cells 3.97 10^6/uL (4.0-5.20); Red Cell Distribution Width 14.5 % (11.8-14.3); White Blood Cell 8.1 10^3/uL (4.4-10.8)
[2023-06-20 08:00] VITALS: PULSE 83; RESP 17; O2SAT 94
[2023-06-20] MEDS ORDERED: PANT40T PO (08:24)
[2023-06-20 08:37] VITALS: BP 134/72; PULSE 83; RESP 17; TEMP 98; O2SAT 94
[2023-06-20 11:28] VITALS: BP 134/72; PULSE 83; RESP 17; TEMP 98; O2SAT 94
[2023-06-20 12:56] VITALS: BP 138/81; PULSE 86; RESP 17; TEMP 98.6; O2SAT 95
== END 2023-06-20 14:20 | disposition home or self-care (01) | DRG 378 ==
LOC: ER 11:05 → OVERFLOW 14:01 → CENTRAL 22:20
PROVIDERS: ADMIT Internal Medicine Pulmonary Disease; ATTEND Internal Medicine Pulmonary Disease
PROC: 0DJD8ZZ Inspection of Lower Intestinal Tract, Via Natural or Artificial Opening Endoscopic (ICD-10-PCS; principal; 2023-06-18 15:45)
DX: K57.31 Diverticulosis of large intestine without perforation or abscess with bleeding (principal); D62 Acute posthemorrhagic anemia; K92.1 Melena; K55.20 Angiodysplasia of colon without hemorrhage; K64.8 Other hemorrhoids; J44.9 Chronic obstructive pulmonary disease, unspecified; E78.5 Hyperlipidemia, unspecified; Z87.19 Personal history of other diseases of the digestive system
CPT/HCPCS: 36415; 74176; 80053; 80061; 80307; 81001; 84443; 85025; 85610; 85730; 86850; 86900; 86901; C9113; G0378; J2250; J2405

== ENCOUNTER 2023-11-17 15:56 | Inpatient (IN) | payer OTHER ==
[~2023-11-17] VITALS: Ht 144.8 cm; Wt 65.9 kg
[~2023-11-17 15:56] MED LIST changes: +MECL12.586 PO; -MECL1TAB31 PO; +PANT40T PO
[2023-11-17] MEDS: MECLIZINE HCL 25 MG TAB PO ONE (16:39)
[2023-11-17 17:06] LABS: Urine Bacteria FEW /hpf (None Seen); Urine Blood 2+ /uL (Negative); Urine Clarity Clear (Clear); Urine Color Colorless (Yellow); Urine Protein, UAD Negative (Negative); Urine Specific Gravity 1.007 (1.001-1.035); Urine Urobilinogen Normal (Negative); Urine WBC 3 /hpf (0 - 5); Urine pH 6.5 (5.0-9.0)
[2023-11-17 17:19] LABS: Hematocrit 41.5 % (36.0-46.0); Hemoglobin 13.8 g/dL (12.2-16.2); Mean Corpuscular Hemoglobin 30.2 pg (28.0-32.0); Mean Corpuscular Hgb Conc. 33.2 g/dL (32.0-36.0); Mean Corpuscular Volume 91.1 fL (80.0-100.0); Red Blood Cells 4.56 10^6/uL (4.0-5.20); Red Cell Distribution Width 15.4 % (11.8-14.3); White Blood Cell 10.8 10^3/uL (4.4-10.8)
[2023-11-17 17:21] LABS: Alanine Aminotransferase 14 U/L (7-40); Albumin 4.6 g/dL (3.2-4.8); Alkaline Phosphatase 126 U/L (46-116); Anion Gap 8 (5-15); Aspartate Aminotransferase 18 U/L (13-40); BUN/Creatinine Ratio 21.4 (10.0-20.0); Band Neutrophils % (manual) 0; Basophils % (manual) 0 (0.0-2.0); Bilirubin, Total 0.4 mg/dL (0.2-1.0); Blast Cells 0; Blood Urea Nitrogen 15 mg/dL (9-23); Calcium 9.6 mg/dL (8.7-10.4); Carbon Dioxide 25 mmol/L (20-30); Chloride 106 mmol/L (98-107); Glucose 85 mg/dL (74-106); Metamyelocytes % 0; Myelocytes % 0; Potassium 4.2 mmol/L (3.5-5.1); Promyelocytes % 0; Reactive Lymphocytes 0; Sodium 139 mmol/L (136-145)
[2023-11-17 18:24] LABS: Eosinophils % (manual) 1 (0-7); Lymphocytes % (manual) 38 (10.0-50.0); Monocytes % (manual) 4 (0-12); Platelet Estimate Adequate
[2023-11-18] MEDS: cefTRIAXone 1GM/50ML D5W 50 ML IV ONE (06:10)
[2023-11-18] MEDS ORDERED: ONDANSETRON HCL 4 MG/2 ML VIAL IV PRN (06:30)
[2023-11-18] MEDS ORDERED: hydrALAZINE HCL 20 MG/ML VL IV PRN (06:30)
[2023-11-18] MEDS ORDERED: MECLIZINE HCL 25 MG TAB PO PRN (06:30)
[2023-11-18] MEDS ORDERED: ACETAMINOPHEN 325 MG TAB PO PRN (06:30)
[2023-11-18 07:36] LABS: Chloride 106 mmol/L (98-107); Sodium 138 mmol/L (136-145)
[2023-11-18 07:37] LABS: Anion Gap 8 (5-15); Calcium 9.8 mg/dL (8.7-10.4); Carbon Dioxide 24 mmol/L (20-30)
[2023-11-18 07:42] LABS: BUN/Creatinine Ratio 14.1 (10.0-20.0); Blood Urea Nitrogen 9 mg/dL (9-23); Glucose 89 mg/dL (74-106)
[2023-11-18 09:38] VITALS: PULSE 71; RESP 14; TEMP 97.5; O2SAT 94
[2023-11-18] MEDS: LISINOPRIL 5 MG TAB PO SCH (10:15)
[2023-11-18] MEDS: ENOXAPARIN SOD 40 MG/0.4 ML SYRINGE SC SCH (10:15)
[2023-11-18] MEDS ORDERED: AMLO1TAB23 PO (14:37)
[2023-11-18 15:29] VITALS: BP 149/71
[2023-11-18 16:00] VITALS: BP 136/70; PULSE 79; RESP 14; O2SAT 94
[2023-11-18] MEDS ORDERED: ATORVASTATIN 20 MG TAB PO SCH (22:00)
[2023-11-18] MEDS ORDERED: cefTRIAXone 1GM/50ML D5W 50 ML IV SCH (22:00)
[2023-11-19] MEDS ORDERED: PANTOPRAZOLE 40 MG TAB PO SCH (06:00)
== END 2023-11-18 16:15 | disposition home or self-care (01) | DRG 305 ==
LOC: ER 15:56 → OVERFLOW 11-18 06:30
PROVIDERS: ADMIT Internal Medicine; ATTEND Nurse Practitioner Acute Care
DX: I16.9 Hypertensive crisis, unspecified (principal); N39.0 Urinary tract infection, site not specified; I10 Essential (primary) hypertension; J84.10 Pulmonary fibrosis, unspecified; E78.5 Hyperlipidemia, unspecified; E66.01 Morbid (severe) obesity due to excess calories; Z91.041 Radiographic dye allergy status; Z79.899 Other long term (current) drug therapy; Z68.31 Body mass index [BMI] 31.0-31.9, adult
CPT/HCPCS: 36415; 70450; 71045; 80048; 80053; 81001; 83880; 84484; 85007; 85027; 85379; 87086; 93005; G0378

== ENCOUNTER → 2023-11-18 | Emergency (ER) | payer OTHER ==
[~2023-11-18] MED LIST changes: +AMLO1TAB23 PO
== END | disposition left against medical advice (07) ==
LOC: ER 04:56
DX: R42 Dizziness and giddiness (principal); N39.0 Urinary tract infection, site not specified; Z53.21 Procedure and treatment not carried out due to patient leaving prior to being seen by health care provider

== ENCOUNTER → 2023-12-08 | Outpatient (CLI) | payer OTHER ==
[2023-12-08 09:02] LABS: Basophils # (auto) 0 10 ^3/uL (0-0.2); Basophils % (auto) 0.6 % (0.0-2.0); Eosinophils # (auto) 0.1 10 ^3/uL (0-0.8); Eosinophils % (auto) 1.4 % (0.0-7.0); Hematocrit 41.4 % (36.0-46.0); Hemoglobin 13.6 g/dL (12.2-16.2); Mean Corpuscular Hemoglobin 30.3 pg (28.0-32.0); Mean Corpuscular Volume 91.8 fL (80.0-100.0); Monocytes # (auto) 0.6 10 ^3/uL (0-1.3); Monocytes % (auto) 7.9 % (0.0-12.0); Neutrophils # (auto) 5.4 10 ^3/uL (1.6-8.6); Neutrophils % (auto) 66.1 % (37.0-80.0); Red Blood Cells 4.51 10^6/uL (4.0-5.20); Red Cell Distribution Width 15.6 % (11.8-14.3); White Blood Cell 8.2 10^3/uL (4.4-10.8)
[2023-12-08 09:12] LABS: Urine Bacteria FEW /hpf (None Seen); Urine Blood 2+ /uL (Negative); Urine Clarity Clear (Clear); Urine Color Light-Yellow (Yellow); Urine Protein, UAD Negative (Negative); Urine Specific Gravity 1.022 (1.001-1.035); Urine Urobilinogen Normal (Negative); Urine WBC 4 /hpf (0 - 5); Urine pH 6.5 (5.0-9.0)
[2023-12-08 09:30] LABS: Alanine Aminotransferase 10 U/L (7-40); Albumin 4.6 g/dL (3.2-4.8); Alkaline Phosphatase 113 U/L (46-116); Anion Gap 6 (5-15); Aspartate Aminotransferase 16 U/L (13-40); BUN/Creatinine Ratio 24.6 (10.0-20.0); Bilirubin, Total 0.4 mg/dL (0.2-1.0); Blood Urea Nitrogen 15 mg/dL (9-23); Calcium 9.9 mg/dL (8.7-10.4); Carbon Dioxide 29 mmol/L (20-30); Chloride 109 mmol/L (98-107); Cholesterol 187 mg/dL (< 200); Glucose 96 mg/dL (74-106); HDL Cholesterol 61 mg/dL (40-59); LDL Cholesterol 104 mg/dL (< 100); Potassium 4.6 mmol/L (3.5-5.1); Sodium 144 mmol/L (136-145); Total Protein 7.3 g/dL (5.7-8.2); Triglycerides 103 mg/dL (< 150)
== END | disposition home or self-care (01) ==
LOC: LAB 08:37
PROVIDERS: ATTEND Internal Medicine
DX: Z00.01 Encounter for general adult medical examination with abnormal findings (principal); Z13.1 Encounter for screening for diabetes mellitus; I10 Essential (primary) hypertension; I87.2 Venous insufficiency (chronic) (peripheral); E78.5 Hyperlipidemia, unspecified; I77.810 Thoracic aortic ectasia
CPT/HCPCS: 36415; 80053; 80061; 81001; 83036; 84439; 84443; 85025

== ENCOUNTER 2024-02-09 09:55 | Inpatient (IN) | payer OTHER ==
[~2024-02-09] VITALS: Ht 149.9 cm; Wt 71.3 kg
[2024-02-09] MEDS: SODIUM CHLORIDE 0.9% 500 ML IV ONE (11:15)
[2024-02-09] MEDS: cefTRIAXone 1GM/50ML D5W 50 ML IV ONE (11:30)
[2024-02-09 11:52] LABS: Basophils # (auto) 0 10 ^3/uL (0-0.2); Basophils % (auto) 0.2 % (0.0-2.0); Eosinophils # (auto) 0.1 10 ^3/uL (0-0.8); Eosinophils % (auto) 0.6 % (0.0-7.0); Hemoglobin 12.9 g/dL (12.2-16.2); Lymphocytes % (auto) 6.4 % (10.0-50.0); Mean Corpuscular Hemoglobin 32.3 pg (28.0-32.0); Mean Corpuscular Hgb Conc. 33.9 g/dL (32.0-36.0); Mean Corpuscular Volume 95.4 fL (80.0-100.0); Monocytes # (auto) 1.2 10 ^3/uL (0-1.3); Monocytes % (auto) 7.2 % (0.0-12.0); Neutrophils % (auto) 85.6 % (37.0-80.0); Platelet Count (auto) 315 10^3/uL (140-450); Red Blood Cells 3.98 10^6/uL (4.0-5.20); Red Cell Distribution Width 14.8 % (11.8-14.3); White Blood Cell 16.3 10^3/uL (4.4-10.8)
[2024-02-09 12:15] LABS: Albumin 4.5 g/dL (3.2-4.8); Alkaline Phosphatase 100 U/L (46-116); Anion Gap 7 (5-15); Aspartate Aminotransferase 12 U/L (13-40); BUN/Creatinine Ratio 17.2 (10.0-20.0); Blood Urea Nitrogen 10 mg/dL (9-23); Calcium 9.9 mg/dL (8.7-10.4); Carbon Dioxide 26 mmol/L (20-31); Chloride 106 mmol/L (98-107); Glucose 112 mg/dL (74-106); Potassium 3.9 mmol/L (3.5-5.1); Sodium 139 mmol/L (136-145)
[2024-02-09 12:16] LABS: Bilirubin, Total 0.7 mg/dL (0.2-1.0); Total Protein 7.6 g/dL (5.7-8.2)
[2024-02-09] MEDS: ACETAMINOPHEN 500 MG TAB PO ONE (12:25)
[2024-02-09 12:28] LABS: Alanine Aminotransferase < 9 U/L (7-40)
[2024-02-09 14:31] LABS: Urine Bacteria None Seen /hpf (None Seen)
[2024-02-09 14:46] LABS: Urine Blood 2+ /uL (Negative); Urine Clarity Clear (Clear); Urine Color Light-Yellow (Yellow); Urine Protein, UAD Negative (Negative); Urine Specific Gravity 1.009 (1.001-1.035); Urine Urobilinogen Normal (Negative); Urine WBC <1 /hpf (0 - 5)
[2024-02-09] MEDS ORDERED: HYDROcodone-ACET 5/325MG TAB PO PRN (15:30)
[2024-02-09] MEDS ORDERED: DOCUSATE SOD 100 MG CAP PO PRN (15:30)
[2024-02-09] MEDS ORDERED: ONDANSETRON HCL 4 MG/2 ML VIAL IV PRN (15:30)
[2024-02-09] MEDS ORDERED: hydrALAZINE HCL 20 MG/ML VL IV PRN (15:30)
[2024-02-09] MEDS: PROMETHAZINE W/CODEINE 5 ML ORAL SYRUP PO ONE (15:41)
[2024-02-09] MEDS ORDERED: MORPHINE SULFATE INJ 2 MG/ml SYRG IV PRN (15:45)
[2024-02-09] MEDS ORDERED: NITROGLYCERIN 0.4 MG SL TAB SL PRN (15:45)
[2024-02-09] MEDS: AZITHROMYCIN 500MG/ 250ML 250 ML IV ONE (16:44)
[2024-02-09 18:24] VITALS: PULSE 92; RESP 20; O2SAT 96
[2024-02-09 20:00] VITALS: PULSE 104; RESP 10; O2SAT 96
[2024-02-09 21:00] VITALS: BP 167/90; PULSE 95; RESP 18; TEMP 98.6; O2SAT 93
[2024-02-09 21:47] VITALS: BP 167/90; PULSE 95; RESP 18; TEMP 98.6; O2SAT 93
[2024-02-09] MEDS: METOPROLOL TARTRATE 25 MG TAB PO SCH (22:09)
[2024-02-09] MEDS: ACETAMINOPHEN 325 MG TAB PO PRN (22:43)
[2024-02-10] VITALS (11 sets, daily range): BP systolic 124–183; BP diastolic 60–92; PULSE 67–97; RESP 16–19; TEMP 97.9–99.3; O2SAT 0–98
[2024-02-10 06:20] LABS: Basophils # (auto) 0 10 ^3/uL (0-0.2); Basophils % (auto) 0.5 % (0.0-2.0); Eosinophils # (auto) 0.2 10 ^3/uL (0-0.8); Hematocrit 37.6 % (36.0-46.0); Hemoglobin 12.8 g/dL (12.2-16.2); Lymphocytes # (auto) 1.3 10 ^3/uL (0.4-5.4); Mean Corpuscular Hemoglobin 32.2 pg (28.0-32.0); Mean Corpuscular Volume 94.7 fL (80.0-100.0); Monocytes % (auto) 9.6 % (0.0-12.0); Neutrophils # (auto) 8.1 10 ^3/uL (1.6-8.6); Neutrophils % (auto) 75.9 % (37.0-80.0); Nucleated Red Blood Cells % 0.2 %; Platelet Count (auto) 319 10^3/uL (140-450); Red Blood Cells 3.97 10^6/uL (4.0-5.20); Red Cell Distribution Width 14.7 % (11.8-14.3); White Blood Cell 10.7 10^3/uL (4.4-10.8)
[2024-02-10 06:37] LABS: Albumin 4.5 g/dL (3.2-4.8); Alkaline Phosphatase 91 U/L (46-116); Anion Gap 7 (5-15); Aspartate Aminotransferase 12 U/L (13-40); BUN/Creatinine Ratio 16.1 (10.0-20.0); Bilirubin, Total 0.7 mg/dL (0.2-1.0); Blood Urea Nitrogen 9 mg/dL (9-23); Calcium 9.9 mg/dL (8.7-10.4); Carbon Dioxide 28 mmol/L (20-31); Chloride 104 mmol/L (98-107); Glucose 90 mg/dL (74-106); Potassium 3.9 mmol/L (3.5-5.1); Sodium 139 mmol/L (136-145); Total Protein 7.2 g/dL (5.7-8.2)
[2024-02-10 06:46] LABS: Alanine Aminotransferase < 9 U/L (7-40)
[2024-02-10] MEDS: amLODIPine BESYLATE 5 MG TAB PO SCH (11:05)
[2024-02-10] MEDS: AZITHROMYCIN 500MG/ 250ML 250 ML IV SCH (11:06)
[2024-02-10 12:58] LABS: COVID19 ANTIGEN SOFIA FIA NEGATIVE (NEGATIVE); Rapid Influenza A Negative (Negative); Rapid Influenza B Negative (Negative)
[2024-02-10] MEDS: hydrALAZINE HCL 20 MG/ML VL IV PRN (15:03)
[2024-02-10] MEDS: IPRATROPIUM BROM 0.5 MG/2.5ML INH SOL NEB SCH (19:25)
[2024-02-10] MEDS: guaiFENesin-DM 100/10mg/5ml SYR PO PRN (22:16)
[2024-02-11] VITALS (15 sets, daily range): BP systolic 118–158; BP diastolic 74–81; PULSE 54–96; RESP 16–20; TEMP 97.9–98.4; O2SAT 0–100
[2024-02-11 06:55] LABS: Basophils # (auto) 0 10 ^3/uL (0-0.2); Basophils % (auto) 0.4 % (0.0-2.0); Eosinophils # (auto) 0.2 10 ^3/uL (0-0.8); Eosinophils % (auto) 2.4 % (0.0-7.0); Hematocrit 38.6 % (36.0-46.0); Hemoglobin 13.1 g/dL (12.2-16.2); Lymphocytes # (auto) 1.6 10 ^3/uL (0.4-5.4); Lymphocytes % (auto) 16.5 % (10.0-50.0); Mean Corpuscular Hemoglobin 32.4 pg (28.0-32.0); Mean Corpuscular Volume 95.4 fL (80.0-100.0); Monocytes # (auto) 0.9 10 ^3/uL (0-1.3); Monocytes % (auto) 9.8 % (0.0-12.0); Neutrophils # (auto) 6.9 10 ^3/uL (1.6-8.6); Neutrophils % (auto) 70.9 % (37.0-80.0); Nucleated Red Blood Cells % 0.1 %; Platelet Count (auto) 346 10^3/uL (140-450); Red Blood Cells 4.05 10^6/uL (4.0-5.20); Red Cell Distribution Width 14.9 % (11.8-14.3); White Blood Cell 9.7 10^3/uL (4.4-10.8)
[2024-02-11 07:00] LABS: Chloride 104 mmol/L (98-107); Potassium 3.9 mmol/L (3.5-5.1); Sodium 138 mmol/L (136-145)
[2024-02-11 07:01] LABS: Anion Gap 9 (5-15); Calcium 9.9 mg/dL (8.7-10.4); Carbon Dioxide 25 mmol/L (20-31)
[2024-02-11 07:06] LABS: BUN/Creatinine Ratio 19.4 (10.0-20.0); Blood Urea Nitrogen 12 mg/dL (9-23); Glucose 92 mg/dL (74-106)
[2024-02-11] MEDS: cefTRIAXone 1GM/50ML D5W 50 ML IV SCH (09:14)
[2024-02-11] MEDS ORDERED: amLODIPine BESYLATE 5 MG TAB PO SCH (10:00)
[2024-02-11] MEDS ORDERED: AMLODIPINE BESYLATE PO SCH (10:00)
[2024-02-11] MEDS: AZITHROMYCIN 250 MG TAB PO ONE (11:00)
[2024-02-11] MEDS ORDERED: CEFD300C2 PO (11:03)
[2024-02-11] MEDS ORDERED: IPRIH INH (11:03)
== END 2024-02-11 21:00 | disposition home or self-care (01) | DRG 871 ==
LOC: ER 09:55 → TELE 15:43 → TELE-WESTW 21:10
PROVIDERS: ADMIT Nurse Practitioner Family; ATTEND Nurse Practitioner Acute Care
DX: A41.50 Gram-negative sepsis, unspecified (principal); J15.69 Pneumonia due to other Gram-negative bacteria; J15.9 Unspecified bacterial pneumonia; I10 Essential (primary) hypertension; E78.5 Hyperlipidemia, unspecified; F41.9 Anxiety disorder, unspecified; Z20.822 Contact with and (suspected) exposure to COVID-19; E66.9 Obesity, unspecified; Z88.8 Allergy status to other drugs, medicaments and biological substances; Z91.041 Radiographic dye allergy status; Z68.31 Body mass index [BMI] 31.0-31.9, adult
CPT/HCPCS: 36415; 71045; 80048; 80053; 81001; 85025; 87426; 87804; 94640; G0378

== ENCOUNTER 2024-06-07 11:40 | Inpatient (IN) | payer OTHER ==
[~2024-06-07] VITALS: Ht 144.8 cm; Wt 72.0 kg
[~2024-06-07 11:40] MED LIST changes: +CEFD300C2 PO; +IPRIH INH
[2024-06-07 12:21] LABS: Urine Bacteria None Seen /hpf (None Seen)
--- NOTE | 2024-06-07 12:33 | DVH ---
EXAM: CT HEAD WITHOUT CONTRAST INDICATION: dizzy, headache TECHNIQUE: CT of the head without intravenous contrast. Coronal and sagittal reformatted images are submitted. Radiation Dose : 1. Head: CT Dose: CTDI volume is 61.6 mGy. Dose-length product is 1014.6 mGy*cm The dose indicators for CT are the volume Computed Tomography (CT) Dose Index (CTDIvol) and the Dose Length Product (DLP), and are measured in units of mGy and mGy-cm, respectively. These indicators are not patient dose, but values generated from the CT scanner acquisition factors. The report includes radiation exposure data for exposures received during this examination. All CT scans at this medical facility are performed using dose modulation techniques as appropriate to a performed exam including the following: Automated exposure control was utilized; adjustment of the MA and/or KV according to patient size; and use of iterative reconstruction technique. COMPARISON: CT scan of the head performed on 11/17/2023 FINDINGS: There is no evidence of acute intracranial hemorrhage, extra-axial collection, mass effect, midline s hift, herniation or hydrocephalus. There are periventricular and subcortical hypodensities, nonspecific, but likely reflecting sequelae of chronic microvascular ischemic changes. The ventricles, sulci and cisterns are age appropriate. The main-white differentiation is intact. The visualized paranasal sinuses and mastoid air cells are clear. No depressed calvarial fracture. The surrounding soft tissues are unremarkable. IMPRESSION: 1. No evidence of acute intracranial abnormality. HS:Y
--- NOTE | 2024-06-07 12:39 | ED.PDOC ---
HPI (NEURO) HPI Comments 79 y.o female with PMHx of asthma and hyperlipidemia, presents to the ED for a chief complaint of dizziness associated with a generalized headache and intermittent nausea that started 3-4 days ago. Patient describes dizziness as "room spinning", and feeling as if about to faint, and is unable to ambulate due to severity. Patient reports history of similar dizziness in the past in which she was diagnosed with vertigo. Patient too medication given to her in the past for vertigo but denies any relief. She denies any recent falls, head injuries, vomiting, vision changes, focal deficits, slurred speech, focal numbness, vision change of ringing of the ear. Chief Complaint: Dizziness Time Seen by MD: 11:58 Primary Care Provider: Rica Walker Notes: Nurses Notes, Medications, Allergies Information Source: Patient Mode of Arrival: Ambulatory Severity: Moderate Dizziness/Weakness Severity: Unable to do activities Headache Severity: Moderate Timing: Days (3-4) Duration: Since onset Headache Quality: Sharp Headache Location: Generalized Onset: At rest Circumstances: Spontaneous Associated Signs and Symptoms: Headache Past Medical History PAST MEDICAL HISTORY: High Lipids, HTN Surgical History: Denies all surgeries [employer] History: Denies all [employer] Hx Family History Family History: Reviewed,noncontributory to illness Social History Smoker: Non-Smoker Alcohol: Denies ETOH Use Drugs: Denies Drug Use Lives In: Home Constitutional: denies: chills, diaphoresis, fatigue, fever, malaise, sweats, weakness, others EENTM: denies: blurred vision, double vision, ear bleeding, ear discharge, ear drainage, ear pain, ear ringing, eye pain, eye redness, hearing loss, mouth pain, mouth swelling, nasal discharge, nose bleeding, nose congestion, nose pain, photophobia, tearing, throat pain, throat swelling, voice changes, others Respiratory: denies: cough, hemoptysis, orthopnea, SOB at rest, shortness of breath, SOB with excertion, stridor, wheezing, others Cardiovascular: denies: chest pain, dizzy spells, diaphoresis, Dyspnea on exertion, edema, irregular heart beat, left arm pain, lightheadedness, palpitations, PND, syncope, others Gastrointestinal: reports: nausea; denies: abdomen distended, abdominal pain, blood streaked bowels, constipated, diarrhea, dysphagia, difficulty swallowing, hematemesis, melena, poor appetite, poor fluid intake, rectal bleeding, rectal pain, vomiting, others Genitourinary: denies: abnormal vagina bleeding, burning, dyspareunia, dysuria, flank pain, frequency, hematuria, incontinence, pain, , vagina discharge, urgency, others Neurological: reports: dizziness, headache; denies: fainting, left sided numbness, left sided weakness, numbness, paresthesia, pre-existing deficit, right sided numbness, right sided weakness, seizure, speech problems, tingling, tremors, weakness, others Musculoskeletal: denies: back pain, gout, joint pain, joint swelling, muscle pain, muscle stiffness, neck pain, others Integumetry: denies: bruises, change in color, change in hair/nails, dryness, laceration, lesions, lumps, rash, wounds, others Allergic/Immunocompromised: denies: Difficulty Healing, Frequent Infections, Hives, Itching, others Hematologic/Lymphatic: denies: anemia, blood clots, easy bleeding, easy bruising, swollen glands, others Endocrine: denies: excessive hunger, excessive sweating, excessive thirst, excessive urination, flushing, intolerance to cold, intolerance to heat, unexplained weight gain, unexplained weight loss, others Psychiatric: denies: anxiety, bipolar disorder, depression, hopeless, panic disorder, schizophrenia, sleepless, suicidal, others Physical Exam General Appearance: Mild Distress HEENT: Other (Pupils symmetric, no facial asymmetry, moist mucous membranes) Neck: Full Range of Motion, Normal Inspection Respiratory: Lungs Clear, No Accessory Muscle Use, No Respiratory Distress, Normal Breath Sounds Cardiovascular: No Edema, No JVD, Regular Rate/Rhythm Breast Exam: Deferred Gastrointestinal: Non Tender, Soft Genitalia: Deferred Pelvic: Deferred Rectal: Deferred Extremities: Normal inspection, Normal range of motion, Non-tender, No pedal edema Neurologic: Alert (Oriented x4), Normal Affect, Normal Mood, Other (Ambulate tolerated without difficulty. No gross focal deficit.) Cerebellar Function: NOT DONE Reflexes: NOT DONE Skin: Dry, Normal Color, Warm Lymphatic: NOT DONE Was a procedure done? Was a procedure done?: No Differential Diagnosis (SZ) Seizure: CVA/TIA, Hypocalcemia, Hypoglycemia, Hyponatremia, Mass Lesion CVA: Electrolyte Imbalance, Encephalopathy, Hypoglycemia General Weakness: Dehydration, Electrolyte imbalance, Meniere's disease Headache: Cluster, Migraine, Epidural Hemorrhage, Intracerebral Hemorrhage, Subarachnoid Hemorrhage, Subdural Hemorrhage X-Ray, Labs, Meds, VS Vital Signs Date Time Temp Pulse Resp B/P (MAP) Pulse Ox O2 Delivery O2 Flow Rate FiO2 06/07/24 11:59 98.9 102 18 147/76 (99) 97 06/07/24 11:59 Room Air 0 Lab Test 06/07/24 13:42 06/07/24 12:58 06/07/24 12:00 Range/Units Troponin I High Sensitivity 4 4 </=34 ng/L White Blood Count 11.6 H 4.4-10.8 10^3/uL Red Blood Count 4.58 4.0-5.20 10^6/uL Hemoglobin 14.3 12.2-16.2 g/dL Hematocrit 44.5 36.0-46.0 % Mean Corpuscular Volume 97.1 80.0-100.0 fL Mean Corpuscular Hemoglobin 31.2 28.0-32.0 pg Mean Corpuscular Hemoglobin Concent 32.1 32.0-36.0 g/dL Red Cell Distribution Width 14.5 H 11.8-14.3 % Platelet Count 342 140-450 10^3/uL Mean Platelet Volume 7.9 6.9-10.8 fL Neutrophils (%) (Auto) 68.7 37.0-80.0 % Lymphocytes (%) (Auto) 21.3 10.0-50.0 % Monocytes (%) (Auto) 7.8 0.0-12.0 % Eosinophils (%) (Auto) 1.9 0.0-7.0 % Basophils (%) (Auto) 0.3 0.0-2.0 % Neutrophils # (Auto) 8.0 1.6-8.6 10 ^3/uL Lymphocytes # (Auto) 2.5 0.4-5.4 10 ^3/uL Monocytes # (Auto) 0.9 0-1.3 10 ^3/uL Eosinophils # (Auto) 0.2 0-0.8 10 ^3/uL Basophils # (Auto) 0 0-0.2 10 ^3/uL Nucleated Red Blood Cells 0.2 % Sodium Level 140 136-145 mmol/L Potassium Level 5.2 H 3.5-5.1 mmol/L Chloride Level 105 98-107 mmol/L Carbon Dioxide Level 26 20-31 mmol/L Anion Gap 9 5-15 Blood Urea Nitrogen 15 9-23 mg/dL Creatinine 0.74 0.550-1.02 mg/dL Glomerular Filtration Rate Calc 83 >90 mL/min BUN/Creatinine Ratio 20.3 H 10.0-20.0 Serum Glucose 88 74-106 mg/dL Calcium Level 10.4 8.7-10.4 mg/dL B-Type Natriuretic Peptide 18.89 0-100 pg/mL Urine Color Light-yellow Yellow Urine Clarity Clear Clear Urine pH 6.5 5.0-9.0 Urine Specific [place] 1.003 1.001-1.035 Urine Protein Negative Negative Urine Ketones Negative Negative Urine Blood 1+ H Negative /uL Urine Nitrite Negative Negative Urine Bilirubin Negative Negative Urine Urobilinogen Normal Negative mg/dL Urine Leukocyte Esterase Negative Negative /uL Urine RBC 1 0 - 4 /hpf Urine Microscopic WBC 0-5 /HPF Urine Squamous Epithelial Cells None seen <5 /hpf Urine Bacteria None seen None Seen /hpf Urine Glucose Normal Normal mg/dL [place] [id number] Ph: [phone] DIAGNOSTIC IMAGING Diagnostic Imaging Report : [id number] Signed PATIENT: VAISHALI TAVERA ACCT: [id number] UNIT: [id number] : 1945 LOC: ER ROOM / BED: / AGE / SEX: 79 / F ADM STATUS: REG ER SERVICE 1209 ORDERING PHYSICIAN: LADY ZAMORA MD PROCEDURE(s): CXRP - CHEST PORTABLE REASON: dizzy ORDER NUMBER(s): [id number], ACCESSION NUMBER(s): [id number] CHEST RADIOGRAPH Indication: dizzy Technique: Single frontal view of the chest was obtained Comparison: XY CHEST PORTABLE on DOS: 02/11/24 FINDINGS: Lines and Tubes: None Lungs: Multifocal airspace disease, unchanged. Pleura: No effusion. No pneumothorax. Cardiomediastinal contours: Unremarkable Bones: Unremarkable IMPRESSION: 1. Unchanged multifocal airspace disease. ATED BY: DEVEN CAMACHO MD DICTATED DATE/TIME: 06/07/24 1258 SIGNED BY: DEVEN CAMACHO MD SIGNED DATE/TIME: 06/07/24 1258 CC: [place] [address] Ph: [phone] DIAGNOSTIC IMAGING Diagnostic Imaging Report : [id number] Signed PATIENT: VAISHALI TAVERA ACCT: [id number] UNIT: [id number] : 1945 LOC: ER ROOM / BED: / AGE / SEX: 79 / F ADM STATUS: REG ER SERVICE 120 ORDERING PHYSICIAN: LADY ZAMORA MD PROCEDURE(s): HWOCT - HEAD WITHOUT CONTRAST REASON: dizzy, headache ORDER NUMBER(s): [id number], ACCESSION NUMBER(s): [id number] EXAM: CT HEAD WITHOUT CONTRAST INDICATION: dizzy, headache TECHNIQUE: CT of the head without intravenous contrast. Coronal and sagittal reformatted images are submitted. Radiation Dose : 1. Head: CT Dose: CTDI volume is 61.6 mGy. Dose-length product is 1014.6 mGy*cm The dose indicators for CT are the volume Computed Tomography (CT) Dose Index (CTDIvol) and the Dose Length Product (DLP), and are measured in units of mGy and mGy-cm, respectively. These indicators are not patient dose, but values generated from the CT scanner acquisition factors. The report includes radiation exposure data for exposures received during this examination. All CT scans at this medical facility are performed using dose modulation techniques as appropriate to a performed exam including the following: Automated exposure control was utilized; adjustment of the MA and/or KV according to patient size; and use of iterative reconstruction technique. COMPARISON: CT scan of the head performed on 11/17/2023 FINDINGS: There is no evidence of acute intracranial hemorrhage, extra-axial collection, mass effect, midline shift, herniation or hydrocephalus. There are periventricular and subcortical hypodensities, nonspecific, but likely reflecting sequelae of chronic microvascular ischemic changes. The ventricles, sulci and cisterns are age appropriate. The main-white differentiation is intact. The visualized paranasal sinuses and mastoid air cells are clear. No depressed calvarial fracture. The surrounding soft tissues are unremarkable. IMPRESSION: 1. No evidence of acute intracranial abnormality. HS:Y ATED BY: JAYCE LOUISE MD DICTATED DATE/TIME: 06/07/24 1230 SIGNED BY: JAYCE LOUISE MD SIGNED DATE/TIME: 06/07/24 1230 CC: X-Ray, Labs, Meds, VS Comment 79-year-old female history of hypertension, hyperlipidemia and vertigo complaining of dizziness Vitals remarkable for heart rate 102, blood pressure 147/76 Exam remarkable for reproducible symptoms with head movement and position changes No focal neurologic deficit Rhythm strip independently interpreted by me: Sinus tach, rate 101, no ectopy. Head CT remarkable Chest x-ray unchanged multifocal airspace disease as compared to 02/11/2024 CBC remarkable for WBC 11.6, basic metabolic panel remarkable for potassium 5.2, repeat potassium pending UA unremarkable, BNP and two serial troponins negative The following ED treatment was ordered for the patient: 1 L 0.9 normal saline IV bolus, meclizine 50 mg p.o., Zofran 4 mg IV, Ativan 1 mg IV, Hubbard 5/325 mg p.o. On re-evaluation, patient states symptoms are persistent. She still has a severe headache and feels lightheaded and dizzy. Plan is to admit the patient for symptomatic treatment, brain MRI and neurology evaluation. Time of 1ST Reevaluation: 12:39 Reevaluation 1ST: Unchanged Patient Education/Counseling: Diagnosis, Treatment, Prognosis Family Education/Counseling: Diagnosis, Treatment, Prognosis Departure 1 Departure Time of Disposition: 15:33 Impression: Primary Impression: Cephalgia Qualified Codes: R51.9 - Headache, unspecified Additional Impression: Vertigo Disposition: ADMITTED INPATIENT Admit to: Tele Condition: Guarded Critical Care Note Critical Care Time?: No Stability Stability form required: No Heart Score Heart Score: Heart Score Response (Comments) Value History N/A 0 EKG N/A 0 Age N/A 0 Risk Factors N/A 0 Troponin N/A 0 Total 0 I personally scribed for LADY ZAMORA MD ([email or web address]) on 06/07/24 at 12:39. Electronically submitted by Chani Cabrera ([facility]). I personally scribed for LADY ZAMORA MD ([email or web address]) on 06/07/24 at 14:52. Electronically submitted by Chani Cabrera ([facility]). LADY ZAMORA MD Jun 07, 2024 12:39
[2024-06-07 12:47] LABS: Urine Blood 1+ /uL (Negative); Urine Clarity Clear (Clear); Urine Protein, UAD Negative (Negative); Urine Specific Gravity 1.003 (1.001-1.035); Urine Squamous Epithelial Cell None Seen /hpf (<5); Urine Urobilinogen Normal (Negative); Urine pH 6.5 (5.0-9.0)
[2024-06-07 12:48] LABS: Urine Color Light-Yellow (Yellow)
--- NOTE | 2024-06-07 13:00 | DVH ---
CHEST RADIOGRAPH Indication: dizzy Technique: Single frontal view of the chest was obtained Comparison: XY CHEST PORTABLE on DOS: 02/11/24 FINDINGS: Lines and Tubes: None Lungs: Multifocal airspace disease, unchanged. Pleura: No effusion. No pneumothorax. Cardiomediastinal contours: Unremarkable Bones: Unremarkable IMPRESSION: 1. Unchanged multifocal airspace disease.
[2024-06-07 13:19] LABS: Basophils # (auto) 0 10 ^3/uL (0-0.2); Basophils % (auto) 0.3 % (0.0-2.0); Eosinophils # (auto) 0.2 10 ^3/uL (0-0.8); Eosinophils % (auto) 1.9 % (0.0-7.0); Hematocrit 44.5 % (36.0-46.0); Hemoglobin 14.3 g/dL (12.2-16.2); Lymphocytes # (auto) 2.5 10 ^3/uL (0.4-5.4); Lymphocytes % (auto) 21.3 % (10.0-50.0); Mean Corpuscular Hemoglobin 31.2 pg (28.0-32.0); Mean Corpuscular Hgb Conc. 32.1 g/dL (32.0-36.0); Mean Corpuscular Volume 97.1 fL (80.0-100.0); Monocytes # (auto) 0.9 10 ^3/uL (0-1.3); Monocytes % (auto) 7.8 % (0.0-12.0); Neutrophils % (auto) 68.7 % (37.0-80.0); Nucleated Red Blood Cells % 0.2 %; Platelet Count (auto) 342 10^3/uL (140-450); Red Blood Cells 4.58 10^6/uL (4.0-5.20); Red Cell Distribution Width 14.5 % (11.8-14.3); White Blood Cell 11.6 10^3/uL (4.4-10.8)
[2024-06-07 13:33] LABS: Chloride 105 mmol/L (98-107); Sodium 140 mmol/L (136-145)
[2024-06-07 13:34] LABS: Anion Gap 9 (5-15); Calcium 10.4 mg/dL (8.7-10.4); Carbon Dioxide 26 mmol/L (20-31)
[2024-06-07 13:39] LABS: BUN/Creatinine Ratio 20.3 (10.0-20.0); Blood Urea Nitrogen 15 mg/dL (9-23); Glucose 88 mg/dL (74-106)
[2024-06-07 13:41] LABS: Potassium 5.2 mmol/L (3.5-5.1)
[2024-06-07] MEDS: MECLIZINE HCL 25 MG TAB PO ONE (17:12)
[2024-06-07] MEDS: HYDROcodone-ACET 5/325MG TAB PO ONE (17:12)
[2024-06-07] MEDS: SODIUM CHLORIDE 0.9% 1,000 ML IV ONE (17:13)
[2024-06-07] MEDS: LORazepam 2MG/ML-1ML VIAL IV ONE (17:26)
[2024-06-07] MEDS: ONDANSETRON HCL 4 MG/2 ML VIAL IV ONE (17:26)
[2024-06-07] MEDS ORDERED: ALBUTEROL SULF 2.5 MG/0.5ML(0.5%) NEB SOLN NEB PRN (21:00)
[2024-06-07] MEDS ORDERED: ONDANSETRON HCL 4 MG/2 ML VIAL IV PRN (21:00)
[2024-06-07 21:17] VITALS: O2SAT 94
[2024-06-07 21:25] VITALS: BP 123/67; PULSE 79; RESP 16; TEMP 98.5; O2SAT 94
[2024-06-07 23:36] VITALS: PULSE 86; RESP 18; O2SAT 98
[2024-06-08] VITALS (11 sets, daily range): BP systolic 105–153; BP diastolic 60–83; PULSE 64–88; RESP 15–19; TEMP 97.4–98.3; O2SAT 94–100
--- NOTE | 2024-06-08 00:04 | DVHHP2 ---
History of Present Illness Reason for Visit: Dizziness History of Present Illness 79-year-old female presents for evaluation of dizziness. Patient reports a four day history of dizziness. Patient reports feeling as if the room is spinning around her even when sitting down. She states his symptoms become worse when standing. Denies chest pain or shortness for breath. No headache or blurred vision. No focal deficits. Denies ringing in the ears. Past Medical History Hypertension and dyslipidemia Past Surgical History Denies Family History Noncontributory Smoke: No ALCOHOL: none Drugs: None Lives: with Family Review of Systems Review of Systems Review of systems are currently negative otherwise addressed in HPI. Allergies: Coded Allergies: Iodine (Verified Allergy, Unknown, 12/18/22) Uncoded Allergies: ADHESIVES (Allergy, Unknown, 04/26/23) Medications Current Medications Medications Dose Ordered Sig/Avinash Route Start Time Stop Time Status Last Admin Dose Admin Meclizine HCl 25 mg Q6HPRN PRN PO 06/07/24 21:00 Amlodipine Besylate 5 mg DAILY PO 06/08/24 10:00 Pantoprazole Sodium 40 mg DAILY@0600 PO 06/08/24 06:00 Atorvastatin Calcium 20 mg HS PO 06/07/24 22:00 Albuterol 2.5 mg Q6HPRN PRN NEB 06/07/24 21:00 Ondansetron HCl 4 mg Q4HP PRN IV 06/07/24 21:00 Enoxaparin Sodium 40 mg DAILY SC 06/08/24 10:00 Acetaminophen 650 mg Q6HP PRN PO 06/07/24 21:00 Exam Vital Signs Vital Signs Date Time Temp Pulse Resp B/P (MAP) Pulse Ox O2 Delivery O2 Flow Rate FiO2 06/07/24 23:36 86 18 98 Room Air* 0 21 06/07/24 21:25 98.5 123/67 98.5 Exam Gen: 71-year-old female in mild distress. Skin: Warm, dry, normal color and texture, no rash. HEENT: Normocephalic atraumatic, mucous membranes moist and pink. Neck: Cervical and supraclavicular nodes normal without enlargement, trachea is midline, thyroid gland is normal without masses. Pulmonary: Clear to auscultation and percussion bilaterally. Cardiac: Regular rate and rhythm. No murmur Abdomen: Soft, nontender, nondistended, bowel sounds present all 4 quadrants, no guarding, no rigidity, no organomegaly. Extremities: No cyanosis, clubbing, no edema Neuro: Cranial nerves II through XII grossly intact, normal affect and speech, no focal motor deficits. Labs/Xrays ORDERING PHYSICIAN: LADY ZAMORA MD PROCEDURE(s): CXRP - CHEST PORTABLE REASON: dizzy ORDER NUMBER(s): [id number], ACCESSION NUMBER(s): [id number] CHEST RADIOGRAPH Indication: dizzy Technique: Single frontal view of the chest was obtained Comparison: XY CHEST PORTABLE on DOS: 02/11/24 FINDINGS: Lines and Tubes: None Lungs: Multifocal airspace disease, unchanged. Pleura: No effusion. No pneumothorax. Cardiomediastinal contours: Unremarkable Bones: Unremarkable IMPRESSION: 1. Unchanged multifocal airspace disease. Labs Test 06/07/24 15:47 06/07/24 12:58 06/07/24 12:00 Range/Units Potassium Level 4.2 3.5-5.1 mmol/L Troponin I High Sensitivity 4 </=34 ng/L White Blood Count 11.6 H 4.4-10.8 10^3/uL Red Blood Count 4.58 4.0-5.20 10^6/uL Hemoglobin 14.3 12.2-16.2 g/dL Hematocrit 44.5 36.0-46.0 % Mean Corpuscular Volume 97.1 80.0-100.0 fL Mean Corpuscular Hemoglobin 31.2 28.0-32.0 pg Mean Corpuscular Hemoglobin Concent 32.1 32.0-36.0 g/dL Red Cell Distribution Width 14.5 H 11.8-14.3 % Platelet Count 342 140-450 10^3/uL Mean Platelet Volume 7.9 6.9-10.8 fL Neutrophils (%) (Auto) 68.7 37.0-80.0 % Lymphocytes (%) (Auto) 21.3 10.0-50.0 % Monocytes (%) (Auto) 7.8 0.0-12.0 % Eosinophils (%) (Auto) 1.9 0.0-7.0 % Basophils (%) (Auto) 0.3 0.0-2.0 % Neutrophils # (Auto) 8.0 1.6-8.6 10 ^3/uL Lymphocytes # (Auto) 2.5 0.4-5.4 10 ^3/uL Monocytes # (Auto) 0.9 0-1.3 10 ^3/uL Eosinophils # (Auto) 0.2 0-0.8 10 ^3/uL Basophils # (Auto) 0 0-0.2 10 ^3/uL Nucleated Red Blood Cells 0.2 % Sodium Level 140 136-145 mmol/L Chloride Level 105 98-107 mmol/L Carbon Dioxide Level 26 20-31 mmol/L Anion Gap 9 5-15 Blood Urea Nitrogen 15 9-23 mg/dL Creatinine 0.74 0.550-1.02 mg/dL Glomerular Filtration Rate Calc 83 >90 mL/min BUN/Creatinine Ratio 20.3 H 10.0-20.0 Serum Glucose 88 74-106 mg/dL Calcium Level 10.4 8.7-10.4 mg/dL B-Type Natriuretic Peptide 18.89 0-100 pg/mL Urine Color Light-yellow Yellow Urine Clarity Clear Clear Urine pH 6.5 5.0-9.0 Urine Specific [place] 1.003 1.001-1.035 Urine Protein Negative Negative Urine Ketones Negative Negative Urine Blood 1+ H Negative /uL Urine Nitrite Negative Negative Urine Bilirubin Negative Negative Urine Urobilinogen Normal Negative mg/dL Urine Leukocyte Esterase Negative Negative /uL Urine RBC 1 0 - 4 /hpf Urine Microscopic WBC 0-5 /HPF Urine Squamous Epithelial Cells None seen <5 /hpf Urine Bacteria None seen None Seen /hpf Urine Glucose Normal Normal mg/dL Assessment/Plan Assessment/Plan Assessment Dizziness Hypertension Plan Admit the patient to [facility] to the hospitalist Meclizine trial MRI of the brain pending Resume home medications Continue treatment per orders. Plan discussed with: Patient My Orders Orders - BOYD DOUGHERTY AGACNP Procedure Category Date Status Time Meclizine Tablet PHA 06/07/24 In Process (Antivert Tablet) 21:00 Amlodipine Tablet PHA 06/08/24 In Process (Norvasc Tablet) 10:00 Pantoprazole Tablet PHA 06/08/24 In Process (Protonix Tablet) 06:00 Atorvastatin (Lipitor) PHA 06/07/24 In Process 22:00 Brain Head Wo Contrast MRI 06/07/24 Logged 20:52 Albuterol Medneb PHA 06/07/24 In Process (Ventolin Medneb) 21:00 Basic Metabolic Panel LAB 06/08/24 Verified 04:00 Admit ADMIT 06/07/24 Transmitted 20:52 Ondansetron Hcl PHA 06/07/24 In Process (Zofran) 21:00 Enoxaparin Sodium PHA 06/08/24 In Process (Lovenox) 10:00 Complete Blood Count LAB 06/08/24 Verified 04:00 Cardiac DIET 06/08/24 Transmitted Diet-2gna,Lofat,Lochol Breakfast Condition: Stable SUNNI 06/07/24 In Process 20:52 Acetaminophen Tablet PHA 06/07/24 In Process (Tylenol Tablet) 21:00 Bedrest With Bathroom SUNNI 06/07/24 In Process Privileg 20:52 Date of Service: Jun 07, 2024 Billing Provider: BOYD DOUGHERTY Common Visit Codes: [id number] INP/OBS CARE (MOD) BOYD DOUGHERTY Jun 08, 2024 00:04
[2024-06-08] MEDS: ATORVASTATIN 20 MG TAB PO SCH (02:31)
[2024-06-08] MEDS: PANTOPRAZOLE 40 MG TAB PO SCH (05:57)
[2024-06-08 07:13] LABS: Chloride 105 mmol/L (98-107); Potassium 4.3 mmol/L (3.5-5.1); Sodium 140 mmol/L (136-145)
[2024-06-08 07:15] LABS: Anion Gap 8 (5-15); Calcium 9.7 mg/dL (8.7-10.4); Carbon Dioxide 27 mmol/L (20-31)
[2024-06-08 07:17] LABS: Basophils # (auto) 0 10 ^3/uL (0-0.2); Basophils % (auto) 0.3 % (0.0-2.0); Eosinophils # (auto) 0.2 10 ^3/uL (0-0.8); Eosinophils % (auto) 2.4 % (0.0-7.0); Hematocrit 37.8 % (36.0-46.0); Hemoglobin 12.3 g/dL (12.2-16.2); Lymphocytes # (auto) 2.2 10 ^3/uL (0.4-5.4); Lymphocytes % (auto) 22.4 % (10.0-50.0); Mean Corpuscular Hemoglobin 31.4 pg (28.0-32.0); Mean Corpuscular Hgb Conc. 32.7 g/dL (32.0-36.0); Mean Corpuscular Volume 96.1 fL (80.0-100.0); Monocytes # (auto) 0.8 10 ^3/uL (0-1.3); Monocytes % (auto) 8.5 % (0.0-12.0); Neutrophils # (auto) 6.4 10 ^3/uL (1.6-8.6); Neutrophils % (auto) 66.4 % (37.0-80.0); Nucleated Red Blood Cells % 0.1 %; Platelet Count (auto) 289 10^3/uL (140-450); Red Blood Cells 3.93 10^6/uL (4.0-5.20); Red Cell Distribution Width 14.1 % (11.8-14.3); White Blood Cell 9.6 10^3/uL (4.4-10.8)
[2024-06-08 07:20] LABS: Glucose 87 mg/dL (74-106)
[2024-06-08 07:39] LABS: BUN/Creatinine Ratio 22.6 (10.0-20.0); Blood Urea Nitrogen 14 mg/dL (9-23)
[2024-06-08 09:06] LABS: Albumin 4.2 g/dL (3.2-4.8); Bilirubin, Total 0.5 mg/dL (0.2-1.0); Magnesium 2.1 mg/dL (1.6-2.6); Total Protein 6.6 g/dL (5.7-8.2)
--- NOTE | 2024-06-08 09:31 | DVH ---
EXAMINATION: MRI BRAIN HEAD WO CONTRAST INDICATION: Dizziness COMPARISON: MRI BRAIN HEAD WO CONTRAST on DOS: 04/26/23 TECHNIQUE: Multiplanar, multisequence magnetic resonance imaging of the brain was performed without the use of i ntravenous contrast. FINDINGS: Diffusion: No restricted diffusion. [place] and White Matter: Stable moderate chronic small-vessel white matter ischemic changes. Hemorrhage: No evidence of hemorrhage. Mass/Mass Effect/Midline Shift: No evidence of mass, mass effect, or midline shift. Hydrocephalus/Extra-axial Fluid Collection: No hydrocephalus or extra-axial fluid collection. Intracranial Vasculature: The visualized intracranial vasculature demonstrates appropriate flow-voids . Sagittal Midline Structures: Unremarkable. Craniocervical Junction: Within normal limits. Calvarium: Normal marrow signal. Paranasal Sinuses and Mastoid Air Cells: Clear. IMPRESSION: 1. Stable moderate chronic small-vessel white matter ischemic changes. 2. No acute findings. HS:Y
[2024-06-08] MEDS: amLODIPine BESYLATE 5 MG TAB PO SCH (09:55)
[2024-06-08] MEDS: ENOXAPARIN SOD 40 MG/0.4 ML SYRINGE SC SCH (09:56)
--- NOTE | 2024-06-08 11:01 | DVHPNRES ---
Progress Note Objective vital signs Vital Sign Date Time Temp Pulse Resp B/P (MAP) Pulse Ox O2 Delivery O2 Flow Rate FiO2 06/08/24 09:55 182/72 06/08/24 09:51 98.2 88 19 98 98.2 06/08/24 07:29 Room Air* 0 21 Total Intake and Output 06/07/24 06/07/24 06/08/24 15:00 23:00 07:00 Intake Total 1000 ml 0 ml Balance 1000 ml 0 ml medications Current Medications Medications Dose Ordered Sig/Avinash Route Start Time Stop Time Status Last Admin Dose Admin Meclizine HCl 25 mg Q6HPRN PRN PO 06/07/24 21:00 Amlodipine Besylate 5 mg DAILY PO 06/08/24 10:00 06/08/24 09:55 5 MG Pantoprazole Sodium 40 mg DAILY@0600 PO 06/08/24 06:00 06/08/24 05:57 40 MG Atorvastatin Calcium 20 mg HS PO 06/07/24 22:00 06/08/24 02:31 20 MG Albuterol 2.5 mg Q6HPRN PRN NEB 06/07/24 21:00 Ondansetron HCl 4 mg Q4HP PRN IV 06/07/24 21:00 Enoxaparin Sodium 40 mg DAILY SC 06/08/24 10:00 06/08/24 09:56 40 MG Acetaminophen 650 mg Q6HP PRN PO 06/07/24 21:00 laboratory and microbiology Laboratory Tests 06/08/24 05:42 Test 06/08/24 05:42 Range/Units Serum Glucose 87 74-106 mg/dL My Orders My Orders Orders - TINO CORTES RESIDENT Procedure Category Date Status Time Orthostatic Vital ORDERS 06/08/24 Transmitted Signs 08:25 Hepatic Panel LAB 06/08/24 In Process 08:25 Drug Screen LAB 06/08/24 Logged 08:25 Magnesium LAB 06/08/24 In Process 08:25 Respiratory Culture ALEX 06/08/24 Logged W/ Gs 10:54 Levofloxacin Tablet PHA 06/08/24 Logged (Levaquin Tablet) 15:00 Levofloxacin Tablet PHA 06/09/24 Logged (Levaquin Tablet) 10:00 Ceftriaxone 1gm/50ml PHA 06/09/24 Logged D5w (Rocephin) 09:00 Ceftriaxone 1gm/50ml PHA 06/08/24 Logged D5w (Rocephin) 15:00 Hi 6-Min Walk Test HDVI 06/08/24 Logged 10:54 TINO CORTES RESIDENT Jun 08, 2024 11:01
[2024-06-08] MEDS: MECLIZINE HCL 25 MG TAB PO PRN (11:41)
[2024-06-08] MEDS: ACETAMINOPHEN 325 MG TAB PO PRN (11:42)
[2024-06-08] MEDS ORDERED: cefTRIAXone 1GM/50ML D5W 50 ML IV ONE (15:00)
[2024-06-08] MEDS: levoFLOXacin 250 MG TAB PO ONE (15:00)
[2024-06-08] MEDS ORDERED: LEVO500T91 PO (16:27)
[2024-06-08] MEDS ORDERED: MECL12.586 PO (16:27)
[2024-06-08] MEDS ORDERED: ERGOCALCIFEROL 50,000 UNIT(1.25MG) CAP PO SCH (16:30)
[2024-06-08] MEDS: hydrALAZINE HCL 20 MG/ML VL IV ONE (16:30)
[2024-06-08] MEDS: CYANOCOBALAMIN (B-12) 1000 MCG/1 ML VIAL IM ONE (16:30)
--- NOTE | 2024-06-08 16:32 | DVHDSRES ---
Discharge Summary Date of Admission Resident Creating Document: TINO CORTES RESIDENT Jun 07, 2024 at 20:52 Date of Discharge: Jun 08, 2024 Labs/Diagnostic Data: Laboratory Results Test 06/08/24 05:42 06/07/24 15:47 06/07/24 12:58 06/07/24 12:00 White Blood Count 9.6 10^3/uL (4.4-10.8) Red Blood Count 3.93 10^6/uL (4.0-5.20) Hemoglobin 12.3 g/dL (12.2-16.2) Hematocrit 37.8 % (36.0-46.0) Mean Corpuscular Volume 96.1 fL (80.0-100.0) Mean Corpuscular Hemoglobin 31.4 pg (28.0-32.0) Mean Corpuscular Hemoglobin Concent 32.7 g/dL (32.0-36.0) Red Cell Distribution Width 14.1 % (11.8-14.3) Platelet Count 289 10^3/uL (140-450) Mean Platelet Volume 7.9 fL (6.9-10.8) Neutrophils (%) (Auto) 66.4 % (37.0-80.0) Lymphocytes (%) (Auto) 22.4 % (10.0-50.0) Monocytes (%) (Auto) 8.5 % (0.0-12.0) Eosinophils (%) (Auto) 2.4 % (0.0-7.0) Basophils (%) (Auto) 0.3 % (0.0-2.0) Neutrophils # (Auto) 6.4 10 ^3/uL (1.6-8.6) Lymphocytes # (Auto) 2.2 10 ^3/uL (0.4-5.4) Monocytes # (Auto) 0.8 10 ^3/uL (0-1.3) Eosinophils # (Auto) 0.2 10 ^3/uL (0-0.8) Basophils # (Auto) 0 10 ^3/uL (0-0.2) Nucleated Red Blood Cells 0.1 % Sodium Level 140 mmol/L (136-145) Potassium Level 4.3 mmol/L (3.5-5.1) Chloride Level 105 mmol/L (98-107) Carbon Dioxide Level 27 mmol/L (20-31) Anion Gap 8 (5-15) Blood Urea Nitrogen 14 mg/dL (9-23) Creatinine 0.62 mg/dL (0.550-1.02) Glomerular Filtration Rate Calc 91 mL/min (>90) BUN/Creatinine Ratio 22.6 (10.0-20.0) Serum Glucose 87 mg/dL (74-106) Calcium Level 9.7 mg/dL (8.7-10.4) Magnesium Level 2.1 mg/dL (1.6-2.6) Total Bilirubin 0.5 mg/dL (0.2-1.0) Aspartate Amino Transferase (AST) 20 U/L (13-40) Alanine Aminotransferase (ALT) 10 U/L (7-40) Alkaline Phosphatase 94 U/L (46-116) Total Protein 6.6 g/dL (5.7-8.2) Albumin 4.2 g/dL (3.2-4.8) Vitamin B12 Level 299 pg/mL (211-911) Vitamin D 25-Hydroxy 12.0 ng/mL (30.0-100) Thyroid Stimulating Hormone (TSH) 1.86 uIU/mL (0.55-4.78) Troponin I High Sensitivity 4 ng/L (</=34) B-Type Natriuretic Peptide 18.89 pg/mL (0-100) Urine Color Light-yellow (Yellow) Urine Clarity Clear (Clear) Urine pH 6.5 (5.0-9.0) Urine Specific [place] 1.003 (1.001-1.035) Urine Protein Negative (Negative) Urine Ketones Negative (Negative) Urine Blood 1+ /uL (Negative) Urine Nitrite Negative (Negative) Urine Bilirubin Negative (Negative) Urine Urobilinogen Normal mg/dL (Negative) Urine Leukocyte Esterase Negative /uL (Negative) Urine RBC 1 /hpf (0 - 4) Urine Microscopic WBC /HPF (0-5) Urine Squamous Epithelial Cells None seen /hpf (<5) Urine Bacteria None seen /hpf (None Seen) Urine Glucose Normal mg/dL (Normal) Other Laboratory Tests 06/08/24 05:42 Brief Hx & Hospital Course: 79-year-old female presents for evaluation of dizziness. Patient reports a four day history of dizziness. Patient reports feeling as if the room is spinning around her even when sitting down. She states his symptoms become worse when standing. Denies chest pain or shortness for breath. No headache or blurred vision. No focal deficits. Denies ringing in the ears. PCP Dr. Strauss During the hospitalization, patient required oxygen supplementation with 2 L, she was diagnosed with pneumonia and started on tablet Levaquin 750 mg for 7 days. For her dizziness, CT head and MRI brain was performed which were unremarkable. She had positive Carver-Hallpike maneuver, and she was diagnosed with BPPV. Ramiro maneuver was performed and her dizziness resolved. The patient's daughter at bedside was educated about Ramiro maneuver and how to perform, she was advised to perform it every day for 2-3 times until the dizziness results, she was also given meclizine. A 6 minute walk test was performed during which a O2 saturation room air dropped to 88%. Patient was advised to follow up with primary care physician and repeat O2 saturation and 6 minute walk test. 06/08-patient is hemodynamically stable, clinically stable, therefore is being discharged home with the advice to follow up with DC clinic, PCP within 7 days. Discharge note: Levaquin 750 mg for next 6 days Meclizine p.r.n. Performing Ramiro maneuver until dizziness resolved Discharge diagnosis: Sepsis secondary to pneumonia, Gram-positive and negative Acute hypoxic respiratory failure secondary to pneumonia Pneumonia, Gram-positive and negative Dizziness secondary to BPPV Uncontrolled hypertension Vitamin-D deficiency Condition at Discharge: Stable Final Diagnosis/Problems List Sepsis secondary to pneumonia, Gram-positive and negative Acute hypoxic respiratory failure secondary to pneumonia Pneumonia, Gram-positive and negative Dizziness secondary to BPPV Uncontrolled hypertension Vitamin-D deficiency Discharge Disposition: Home Discharge Instruct/Medications Diet: Regular, Cardiac 2g Na,low cholest Activity: No Restrictions, As Tolerated Follow Up/Referral: Follow up with primary care physician within 7 days, repeat SpO2 and 6 minute walk test Follow up with discharge clinic appointment Medications: Levaquin 750 mg once daily for the next 6 days Meclizine 1 tablet p.r.n. Vitamin-D Discharge Statement: "Patient was advised to return to the ER or call 911 if any headaches, dizziness, shortness of breath, chest pain, abdominal pain, bleeding, fevers, or worsening of medical condition. Patient was counseled about treatment plan, medications, possible side effects, patientverbalized understanding. All questions were answered to the best of my ability. This discharge took greater then 30 minutes in planning, reviewing documentation, counseling the patient, and discussing with other team members." ASSESSMENT ASSESSMENT Assessment Dizziness secondary to BPPV - performed Ramiro maneuver Sepsis due to pneumonia, Gram-positive and negative Uncontrolled hypertension Vitamin-D deficiency TINO CORTES RESIDENT Jun 08, 2024 16:32
[2024-06-08] MEDS ORDERED: CHOL20007 PO (17:58)
[2024-06-09] MEDS ORDERED: cefTRIAXone 1GM/50ML D5W 50 ML IV SCH (09:00)
[2024-06-09 12:57] LABS: Bilirubin, Direct 0.2 mg/dL (<0.3)
[2024-06-10] MEDS ORDERED: levoFLOXacin 250 MG TAB PO SCH (10:00)
--- NOTE | 2024-06-11 11:20 | ECG ---
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
== END 2024-06-08 18:00 | disposition home or self-care (01) | DRG 179 ==
LOC: ER 11:40 → OVERFLOW 20:52 → CENTRAL 06-08 02:58
PROVIDERS: ADMIT Student in an Organized Health Care Education/Training Program; ATTEND Student in an Organized Health Care Education/Training Program
DX: J15.69 Pneumonia due to other Gram-negative bacteria (principal); H81.13 Benign paroxysmal vertigo, bilateral; J15.9 Unspecified bacterial pneumonia; E55.9 Vitamin D deficiency, unspecified; E78.5 Hyperlipidemia, unspecified; I10 Essential (primary) hypertension; Z79.899 Other long term (current) drug therapy
CPT/HCPCS: 36415; 70450; 70551; 71045; 80048; 80076; 81001; 82306; 82607; 83735; 83880; 84132; 84443; 84484; 85025; 94618; 96361; 96374; 96375; G0378; J2405

== ENCOUNTER 2024-08-29 13:52 | Inpatient (IN) | payer OTHER ==
[~2024-08-29] VITALS: Ht 144.8 cm; Wt 76.1 kg
[~2024-08-29 13:52] MED LIST changes: -CEFD300C2 PO; +CHOL20007 PO; +LEVO500T91 PO; -PRED20TA2 PO
--- NOTE | 2024-08-29 14:19 | ECG ---
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
--- NOTE | 2024-08-29 14:41 | ED.PDOC ---
History of Present Illness HPI Comments 79F presents to the Er w/ daughter and w/ prior MHx of COPD, High Lipids, HTN;Tubal Ligation and the c/c of SOB. Daughter reports that the pt has CP whenever the pt coughs, and is unable to lay down due from coughing. Daughter notes that she was sick before the pt had her symptoms but currently doesnt have any. Denies chills, fever, N/V/D. No other associated symptoms, modifiers, recent injuries or sick contacts present at this time. Chief Complaint: Shortness of Breath Time Seen by MD: 14:30 Primary Care Provider: Rica Reviewed Notes: Nurses Notes, Medications, Allergies Allergies: Coded Allergies: Iodine (Verified Allergy, Unknown, 12/18/22) Uncoded Allergies: ADHESIVES (Allergy, Unknown, 04/26/23) Home Meds Active Scripts Cholecalciferol (VITAMIN D3) 2,000 Unit Tab, 1 TAB PO DAILY, #30 TAB 0 Refills Prov:SOPHIATINO RESIDENT 06/08/24 Meclizine Hcl (Meclizine Hcl) 12.5 Mg Tab, 2 TAB PO TID PRN, #30 TAB Prov:SOPHIATINO RESIDENT 06/08/24 Levofloxacin Hemihydrate (LEVAQUIN 500 MG) 500 Mg Tab, 750 MG PO DAILY for 6 Days, #9 TAB 0 Refills Prov:SOPHIATINO RESIDENT 06/08/24 Ipratropium [place] Hfa (Atrovent Hfa) 17 Mcg Aer, 2 PUFF INH QID, #12.9 GRAMS 5 Refills Prov:DARLENE BONILLA CLINICAL PROGRAM DIRECTOR 02/11/24 Amlodipine Besylate (Amlodipine Besylate) 10 Mg Tab, 0.5 TAB PO DAILY for 30 Days, #15 TAB 5 Refills Prov:DARLENE BONILLA CLINICAL PROGRAM DIRECTOR 11/18/23 Pantoprazole Sodium Sesquihydr (Pantoprazole Sodium) 40 Mg Tab, 40 MG PO DAILY for 30 Days, #30 TAB Prov:JANIE ESTRELLA RESIDENT 06/20/23 Ondansetron Odt 4MG Tab (ZOFRAN PO) 4 Mg Tb, 4 MG PO Q6HPRN PRN, #20 TAB ODT TAB-DISSOLVE IN MOUTH, THEN SWALLOW Prov:GEOVANNY ROSALES DO 04/26/23 Reported Medications Pravastatin Sodium (PRAVACHOL TABLET) 20 Mg Tb, 1 TAB PO DAILY 07/17/22 Information Source: Patient, Relative (Mother) Mode of Arrival: Ambulatory Severity: Moderate Timing: Days Duration: Since onset, Days Prehospital treatment: None Past Medical History PAST MEDICAL HISTORY: COPD, High Lipids, HTN Surgical History: Tubal Ligation RUG TOUCH UP PAINTER History: Denies all RUG TOUCH UP PAINTER Hx Family History Family History: Reviewed,noncontributory to illness, Unknown Social History Smoker: Non-Smoker Alcohol: Denies ETOH Use Drugs: Denies Drug Use Lives In: Home Constitutional: denies: chills, diaphoresis, fatigue, fever, malaise, sweats, weakness, others EENTM: denies: blurred vision, double vision, ear bleeding, ear discharge, ear drainage, ear pain, ear ringing, eye pain, eye redness, hearing loss, mouth pain, mouth swelling, nasal discharge, nose bleeding, nose congestion, nose pain, photophobia, tearing, throat pain, throat swelling, voice changes, others Respiratory: reports: cough, shortness of breath; denies: hemoptysis, orthopnea, SOB at rest, SOB with excertion, stridor, wheezing, others Cardiovascular: reports: chest pain; denies: dizzy spells, diaphoresis, Dyspnea on exertion, edema, irregular heart beat, left arm pain, lightheadedness, palpitations, PND, syncope, others Gastrointestinal: denies: abdomen distended, abdominal pain, blood streaked bowels, constipated, diarrhea, dysphagia, difficulty swallowing, hematemesis, melena, nausea, poor appetite, poor fluid intake, rectal bleeding, rectal pain, vomiting, others Genitourinary: denies: abnormal vagina bleeding, burning, dyspareunia, dysuria, flank pain, frequency, hematuria, incontinence, pain, , vagina discharge, urgency, others Neurological: denies: dizziness, fainting, headache, left sided numbness, left sided weakness, numbness, paresthesia, pre-existing deficit, right sided numbness, right sided weakness, seizure, speech problems, tingling, tremors, weakness, others Musculoskeletal: denies: back pain, gout, joint pain, joint swelling, muscle pain, muscle stiffness, neck pain, others Integumetry: denies: bruises, change in color, change in hair/nails, dryness, laceration, lesions, lumps, rash, wounds, others Allergic/Immunocompromised: denies: Difficulty Healing, Frequent Infections, Hives, Itching, others Hematologic/Lymphatic: denies: anemia, blood clots, easy bleeding, easy bruising, swollen glands, others Endocrine: denies: excessive hunger, excessive sweating, excessive thirst, excessive urination, flushing, intolerance to cold, intolerance to heat, unexplained weight gain, unexplained weight loss, others Psychiatric: denies: anxiety, bipolar disorder, depression, hopeless, panic disorder, schizophrenia, sleepless, suicidal, others All Other Systems: Reviewed and Negative Physical Exam General Appearance: Moderate Distress HEENT: Normal ENT Inspection, Pharynx Normal, TMs Normal Neck: Full Range of Motion, Non-Tender, Normal, Normal Inspection Respiratory: Accessory Muscle Use, Chest Non-Tender, Decreased Breath Sounds, Respiratory Distress, Wheezing Cardiovascular: No Edema, No JVD, No Murmur, No Gallop, Normal Peripheral Pulses, Regular Rate/Rhythm Breast Exam: Deferred Gastrointestinal: No Organomegaly, Non Tender, No Pulsatile Mass, Normal Bowel Sounds, Soft Genitalia: Deferred Pelvic: Deferred Rectal: Deferred Extremities: No calf tenderness, Normal capillary refill, Normal inspection, Normal range of motion, Non-tender, No pedal edema Musculoskeletal : Apperance: Normal Neurologic: Alert, project superintendent II-XII nml as Tested, No Motor Deficits, Normal Affect, Normal Mood, No Sensory Deficits Cerebellar Function: Normal Reflexes: Normal Skin: Dry, Normal Color, Warm Lymphatic: No Adenopathy Was a procedure done? Was a procedure done?: No Differential Dx Considerations may include: COPD exacerbation, generalized weakness, electrolyte imbalance, pneumonia X-Ray, Labs, Meds, VS Vital Signs Date Time Temp Pulse Resp B/P (MAP) Pulse Ox O2 Delivery O2 Flow Rate FiO2 08/29/24 15:00 92 20 133/77 (95) 97 08/29/24 14:57 16 96 Room Air* 0 21 08/29/24 14:13 99.8 94 16 168/90 (116) 93 99.8 08/29/24 14:11 89 Lab Test 08/29/24 15:53 08/29/24 14:45 Range/Units Troponin I High Sensitivity 4 3 L </=34 ng/L White Blood Count 5.7 4.4-10.8 10^3/uL Red Blood Count 4.45 4.0-5.20 10^6/uL Hemoglobin 14.0 12.2-16.2 g/dL Hematocrit 42.2 36.0-46.0 % Mean Corpuscular Volume 94.8 80.0-100.0 fL Mean Corpuscular Hemoglobin 31.4 28.0-32.0 pg Mean Corpuscular Hemoglobin Concent 33.1 32.0-36.0 g/dL Red Cell Distribution Width 14.6 H 11.8-14.3 % Platelet Count 274 140-450 10^3/uL Mean Platelet Volume 7.5 6.9-10.8 fL Neutrophils (%) (Auto) 60.0 37.0-80.0 % Lymphocytes (%) (Auto) 24.3 10.0-50.0 % Monocytes (%) (Auto) 13.4 H 0.0-12.0 % Eosinophils (%) (Auto) 1.9 0.0-7.0 % Basophils (%) (Auto) 0.4 0.0-2.0 % Neutrophils # (Auto) 3.4 1.6-8.6 10 ^3/uL Lymphocytes # (Auto) 1.4 0.4-5.4 10 ^3/uL Monocytes # (Auto) 0.8 0-1.3 10 ^3/uL Eosinophils # (Auto) 0.1 0-0.8 10 ^3/uL Basophils # (Auto) 0 0-0.2 10 ^3/uL Nucleated Red Blood Cells 0.1 % Sodium Level 140 136-145 mmol/L Potassium Level 4.1 3.5-5.1 mmol/L Chloride Level 105 98-107 mmol/L Carbon Dioxide Level 26 20-31 mmol/L Anion Gap 9 5-15 Blood Urea Nitrogen 12 9-23 mg/dL Creatinine 0.68 0.550-1.02 mg/dL Glomerular Filtration Rate Calc 89 >90 mL/min BUN/Creatinine Ratio 17.6 10.0-20.0 Serum Glucose 111 H 74-106 mg/dL Calcium Level 9.5 8.7-10.4 mg/dL B-Type Natriuretic Peptide 26.24 0-100 pg/mL Current Medications Medications (Trade) Dose Ordered Sig/Avinash Route Start Time Stop Time Status Last Admin Ipratropium [place] (Atrovent Medneb) 1 mg ONCE ONCE N 08/29/24 14:45 08/29/24 14:46 DC 08/29/24 14:52 Albuterol (Ventolin Medneb) 20 mg ONCE ONCE N 08/29/24 14:45 08/29/24 14:46 DC 08/29/24 14:52 The chest x-ray shows: IMPRESSION: Bilateral perihilar fullness. Mass/ lymphadenopathy can not be excluded. Ixpo-tqcdqwg-fbwr-right lower lung zone pneumonia /atelectasis. The patient was given a breathing treatment of albuterol and Atrovent which is a continuous treatment The patient was also given Solu-Medrol 125 mg IV push The patient was given an IV Hep-Lock The patient's CBC and chemistry panel are within normal limits The troponin level x2 is negative The BNP is within normal range At this time, the patient was being admitted to the hospitalist The patient was diagnosis is acute respiratory failure with COPD exacerbation Images Reviewed?: Images reviewed and evaluated by me Time of 1ST Reevaluation: 15:00 Reevaluation 1ST: Unchanged Patient Education/Counseling: Diagnosis, Treatment, Prognosis Family Education/Counseling: Diagnosis, Treatment, Prognosis Departure 1 Departure Time of Disposition: 16:35 Impression: Primary Impression: Acute respiratory failure Qualified Codes: J96.01 - Acute respiratory failure with hypoxia Additional Impression: COPD exacerbation Disposition: ADMITTED INPATIENT [facility] to[facility] Condition: Guarded Critical Care Note Critical Care Time?: Yes (45 min-critical care time only) Stability Stability form required: Yes Unstable for transfer: Telemetry monitoring (Telemetry monitoring required), ED Physician Assesment (Clinical assesment) Heart Score Heart Score: Heart Score Response (Comments) Value History Slightly Suspicious 0 EKG Normal 0 Age >65 2 Risk Factors >3 or Hx ASHD 2 Troponin 1-2 x's Normal limit 1 Total 5 I personally scribed for DEEJAY KO MD ([email or web address]) on 08/29/24 at 14:41. Electronically submitted by Alexis Ivy ([email or web address]). DEEJAY KO MD August 29, 2024 14:41
[2024-08-29] MEDS: IPRATROPIUM BROM 0.5 MG/2.5ML INH SOL HHN ONE (14:52)
[2024-08-29] MEDS: ALBUTEROL SULF 2.5 MG/0.5ML(0.5%) NEB SOLN HHN ONE (14:52)
[2024-08-29 15:00] LABS: Basophils # (auto) 0 10 ^3/uL (0-0.2); Basophils % (auto) 0.4 % (0.0-2.0); Eosinophils # (auto) 0.1 10 ^3/uL (0-0.8); Eosinophils % (auto) 1.9 % (0.0-7.0); Hematocrit 42.2 % (36.0-46.0); Lymphocytes # (auto) 1.4 10 ^3/uL (0.4-5.4); Lymphocytes % (auto) 24.3 % (10.0-50.0); Mean Corpuscular Hemoglobin 31.4 pg (28.0-32.0); Mean Corpuscular Hgb Conc. 33.1 g/dL (32.0-36.0); Mean Corpuscular Volume 94.8 fL (80.0-100.0); Monocytes # (auto) 0.8 10 ^3/uL (0-1.3); Monocytes % (auto) 13.4 % (0.0-12.0); Neutrophils # (auto) 3.4 10 ^3/uL (1.6-8.6); Nucleated Red Blood Cells % 0.1 %; Platelet Count (auto) 274 10^3/uL (140-450); Red Blood Cells 4.45 10^6/uL (4.0-5.20); Red Cell Distribution Width 14.6 % (11.8-14.3); White Blood Cell 5.7 10^3/uL (4.4-10.8)
[2024-08-29 15:08] LABS: Chloride 105 mmol/L (98-107); Potassium 4.1 mmol/L (3.5-5.1); Sodium 140 mmol/L (136-145)
[2024-08-29 15:09] LABS: Anion Gap 9 (5-15); Calcium 9.5 mg/dL (8.7-10.4); Carbon Dioxide 26 mmol/L (20-31)
[2024-08-29 15:14] LABS: BUN/Creatinine Ratio 17.6 (10.0-20.0); Blood Urea Nitrogen 12 mg/dL (9-23)
[2024-08-29 15:17] LABS: Glucose 111 mg/dL (74-106)
--- NOTE | 2024-08-29 15:17 | DVH ---
XY CHEST TWO VIEWS ROUTINE CLINICAL HISTORY: sob COMPARISON: XY CHEST TWO VIEWS ROUTINE on DOS: 12/25/22, XY CHEST TWO VIEWS ROUTINE on DOS: 07/17/22 TECHNIQUE: Frontal and lateral view of the chest was obtained FINDINGS: Lines and Tubes: None Lungs: Opacities of the left euip-lrbaruu-pctl-right lower lung zones with bilateral perihilar fullne ss. Pleura: No effusion. No pneumothorax. Cardiomediastinal contours: Limited evaluation of the Heart size due to right perihilar fullness. Bones: No acute osseous abnormality. IMPRESSION: Bilateral perihilar fullness. Mass/ lymphadenopathy can not be excluded. Tnlw-vsjhskl-dllh-right lower lung zone pneumonia /atelectasis.
[2024-08-29] MEDS ORDERED: AZITHROMYCIN 500MG/ 250ML 250 ML IV ONE (19:30)
[2024-08-29] MEDS ORDERED: ALBUTEROL SULF 2.5 MG/0.5ML(0.5%) NEB SOLN NEB PRN (19:30)
[2024-08-29] MEDS ORDERED: ONDANSETRON HCL 4 MG/2 ML VIAL IV PRN (19:30)
[2024-08-29] MEDS ORDERED: IPRATROPIUM BROM 0.5 MG/2.5ML INH SOL NEB PRN (19:30)
[2024-08-29 20:11] VITALS: BP 127/82; PULSE 99; RESP 20; O2SAT 96
[2024-08-29] MEDS: ACETAMINOPHEN 325 MG TAB PO PRN (20:33)
[2024-08-29] MEDS: methylPREDNISolone SOD SUCC 125 MG/2 ML VL IV ONE (20:43)
[2024-08-29] MEDS: cefTRIAXone 1GM/50ML D5W 50 ML IV ONE (20:44)
[2024-08-29 21:47] VITALS: BP 141/76; PULSE 110; RESP 19; TEMP 98.1; O2SAT 93
[2024-08-29] MEDS: PRAVASTATIN SODIUM 20 MG TAB PO SCH (22:34)
[2024-08-29] MEDS: AZITHROMYCIN 500MG/ 250ML 250 ML IV ONE (22:35)
[2024-08-30] VITALS (10 sets, daily range): BP systolic 128–150; BP diastolic 68–89; PULSE 54–95; RESP 17–18; TEMP 96–98; O2SAT 91–95
--- NOTE | 2024-08-30 04:25 | DVHHP2 ---
History of Present Illness Reason for Visit: Shortness of breaths History of Present Illness 79-year-old female presents for evaluation of shortness for breath. Patient reports a two day history of worsening shortness for breath not being relieved with her inhaler or nebulizer. She also reports having a nonproductive cough. Denies fever or chills. No other acute complaints reported. Past Medical History Hypertension, dyslipidemia, COPD Past Surgical History Tubal ligation Family History Noncontributory Smoke: No ALCOHOL: none Drugs: None Lives: with Family Review of Systems Review of Systems Review of systems are currently negative otherwise addressed in HPI. Allergies: Coded Allergies: Iodine (Verified Allergy, Unknown, 12/18/22) Uncoded Allergies: ADHESIVES (Allergy, Unknown, 04/26/23) Medications Current Medications Medications Dose Ordered Sig/Avinash Route Start Time Stop Time Status Last Admin Dose Admin Pravastatin Sodium 20 mg HS PO 08/29/24 22:00 08/29/24 22:34 20 MG Amlodipine Besylate 5 mg DAILY PO 08/30/24 10:00 Albuterol 2.5 mg Q6HPRN PRN NEB 08/29/24 19:30 Ipratropium [place] 0.5 mg Q6HPRN PRN NEB 08/29/24 19:30 Ceftriaxone Sodium 50 ml @ 100 mls/hr DAILY@09 IV 08/30/24 09:00 Azithromycin 250 ml @ 125 mls/hr DAILY IV 08/30/24 10:00 Ondansetron HCl 4 mg Q4HP PRN IV 08/29/24 19:30 Enoxaparin Sodium 40 mg DAILY SC 08/30/24 10:00 Acetaminophen 650 mg Q6HP PRN PO 08/29/24 19:30 08/29/24 20:33 650 MG Exam Vital Signs Vital Signs Date Time Temp Pulse Resp B/P (MAP) Pulse Ox O2 Delivery O2 Flow Rate FiO2 08/29/24 21:47 98.1 110 19 141/76 (97) 93 98.1 08/29/24 21:47 Room Air* 0 21 Exam Gen: 79-year-old female abdominal distress Skin: Warm, dry, normal color and texture, no rash. HEENT: Normocephalic atraumatic, mucous membranes moist and pink. Neck: Cervical and supraclavicular nodes normal without enlargement, trachea is midline, thyroid gland is normal without masses. Pulmonary: Bilateral wheeze Cardiac: Regular rate and rhythm. No murmur Abdomen: Soft, nontender, nondistended, bowel sounds present all 4 quadrants, no guarding, no rigidity, no organomegaly. Extremities: No cyanosis, clubbing, no edema Neuro: Cranial nerves II through XII grossly intact, normal affect and speech, no focal motor deficits. Labs/Xrays ORDERING PHYSICIAN: DEEJAY KO MD PROCEDURE(s): CXR2 - CHEST TWO VIEWS ROUTINE REASON: sob ORDER NUMBER(s): [id number], ACCESSION NUMBER(s): [id number] XY CHEST TWO VIEWS ROUTINE CLINICAL HISTORY: sob COMPARISON: XY CHEST TWO VIEWS ROUTINE on DOS: 12/25/22, XY CHEST TWO VIEWS ROUTINE on DOS: 07/17/22 TECHNIQUE: Frontal and lateral view of the chest was obtained FINDINGS: Lines and Tubes: None Lungs: Opacities of the left lykq-gtpjzjg-vcvo-right lower lung zones with bilateral perihilar fullness. Pleura: No effusion. No pneumothorax. Cardiomediastinal contours: Limited evaluation of the Heart size due to right perihilar fullness. Bones: No acute osseous abnormality. IMPRESSION: Bilateral perihilar fullness. Mass/ lymphadenopathy can not be excluded. Uizq-mmrtsay-npnb-right lower lung zone pneumonia /atelectasis. Labs Test 08/29/24 17:44 08/29/24 14:45 Range/Units Troponin I High Sensitivity 7 </=34 ng/L White Blood Count 5.7 4.4-10.8 10^3/uL Red Blood Count 4.45 4.0-5.20 10^6/uL Hemoglobin 14.0 12.2-16.2 g/dL Hematocrit 42.2 36.0-46.0 % Mean Corpuscular Volume 94.8 80.0-100.0 fL Mean Corpuscular Hemoglobin 31.4 28.0-32.0 pg Mean Corpuscular Hemoglobin Concent 33.1 32.0-36.0 g/dL Red Cell Distribution Width 14.6 H 11.8-14.3 % Platelet Count 274 140-450 10^3/uL Mean Platelet Volume 7.5 6.9-10.8 fL Neutrophils (%) (Auto) 60.0 37.0-80.0 % Lymphocytes (%) (Auto) 24.3 10.0-50.0 % Monocytes (%) (Auto) 13.4 H 0.0-12.0 % Eosinophils (%) (Auto) 1.9 0.0-7.0 % Basophils (%) (Auto) 0.4 0.0-2.0 % Neutrophils # (Auto) 3.4 1.6-8.6 10 ^3/uL Lymphocytes # (Auto) 1.4 0.4-5.4 10 ^3/uL Monocytes # (Auto) 0.8 0-1.3 10 ^3/uL Eosinophils # (Auto) 0.1 0-0.8 10 ^3/uL Basophils # (Auto) 0 0-0.2 10 ^3/uL Nucleated Red Blood Cells 0.1 % Sodium Level 140 136-145 mmol/L Potassium Level 4.1 3.5-5.1 mmol/L Chloride Level 105 98-107 mmol/L Carbon Dioxide Level 26 20-31 mmol/L Anion Gap 9 5-15 Blood Urea Nitrogen 12 9-23 mg/dL Creatinine 0.68 0.550-1.02 mg/dL Glomerular Filtration Rate Calc 89 >90 mL/min BUN/Creatinine Ratio 17.6 10.0-20.0 Serum Glucose 111 H 74-106 mg/dL Calcium Level 9.5 8.7-10.4 mg/dL B-Type Natriuretic Peptide 26.24 0-100 pg/mL Assessment/Plan Assessment/Plan Assessment Acute on chronic hypoxic respiratory failure Community-acquired pneumonia COPD Hypertension Plan Admit the patient to Med surge to the hospitalist Rocephin/azithromycin Med nebs Resume home medications Continue treatment per orders. Plan discussed with: Patient My Orders Orders - BOYD DOUGHERTY AGACNP Procedure Category Date Status Time Pravastatin Sodium PHA 08/29/24 In Process Tablet (Pravachol Tab 22:00 Amlodipine Tablet PHA 08/30/24 In Process (Norvasc Tablet) 10:00 Albuterol Medneb PHA 08/29/24 In Process (Ventolin Medneb) 19:30 Ipratropium Medneb PHA 08/29/24 In Process (Atrovent Medneb) 19:30 Ceftriaxone 1gm/50ml PHA 08/30/24 In Process D5w (Rocephin) 09:00 Azithromycin 500mg/ PHA 08/30/24 In Process 250ml (Zithromax 50 10:00 Basic Metabolic Panel LAB 08/30/24 Logged 04:00 Admit ADMIT 08/29/24 Transmitted 19:17 Ondansetron Hcl PHA 08/29/24 In Process (Zofran) 19:30 Enoxaparin Sodium PHA 08/30/24 In Process (Lovenox) 10:00 Cardiac DIET 08/30/24 Transmitted Diet-2gna,Lofat,Lochol Breakfast Condition: Stable SUNNI 08/29/24 In Process 19:17 Acetaminophen Tablet PHA 08/29/24 In Process (Tylenol Tablet) 19:30 Bedrest With Bathroom SUNNI 08/29/24 In Process Privileg 19:17 Guaifenesin-Dextromet PHA 08/30/24 Verified Liquid (Robitussin 04:30 Date of Service: August 29, 2024 Billing Provider: BOYD DOUGHERTY Common Visit Codes: [id number] INP/OBS CARE (HIGH) BOYD DOUGHERTY August 30, 2024 04:25
[2024-08-30] MEDS ORDERED: guaiFENesin-DM 100/10mg/5ml SYR PO PRN (04:30)
[2024-08-30 07:03] LABS: Chloride 106 mmol/L (98-107); Potassium 4.5 mmol/L (3.5-5.1); Sodium 138 mmol/L (136-145)
[2024-08-30 07:04] LABS: Anion Gap 8 (5-15); Calcium 9.8 mg/dL (8.7-10.4); Carbon Dioxide 24 mmol/L (20-31)
[2024-08-30 07:09] LABS: BUN/Creatinine Ratio 19.3 (10.0-20.0); Blood Urea Nitrogen 11 mg/dL (9-23)
[2024-08-30 07:14] LABS: Glucose 142 mg/dL (74-106)
[2024-08-30] MEDS: amLODIPine BESYLATE 5 MG TAB PO SCH (10:25)
[2024-08-30] MEDS: cefTRIAXone 1GM/50ML D5W 50 ML IV SCH (10:26)
[2024-08-30] MEDS: ENOXAPARIN SOD 40 MG/0.4 ML SYRINGE SC SCH (10:27)
[2024-08-30] MEDS: AZITHROMYCIN 500MG/ 250ML 250 ML IV SCH (11:33)
[2024-08-30] MEDS: methylPREDNISolone SOD SUCC 40 MG/ML VL IV SCH (18:39)
[2024-08-30] MEDS: FUROSEMIDE 20 MG/2 ML VIAL IV ONE (18:40)
--- NOTE | 2024-08-30 19:43 | DVH ---
Procedure: CT HI-RESOLUTION CHEST CT Reason for study/Clinical History: SOB Comparison Study: CT CHEST WITHOUT CONTRAST on DOS: 12/25/22None available at time of dictation. Exam Date: 08/30/2024 03:50 PM TECHNIQUE: Multidetector CT of the chest was performed from the lung apices to the upper abdomen with out the use of intravenous contract. Axial, coronal and sagittal multiplanar reformats were performed . Radiation Dose Information: CT Dose: CTDI volume is 7.05 mGy. Dose-length product is 425.53 mGy*cm The dose indicators for CT are the volume Computed Tomography (CT) Dose Index (CTDIvol) and the Dose Length Product (DLP), and are measured in units of mGy and mGy-cm, respectively. These indicators are not patient dose, but values generated from the CT scanner acquisition factors. The report includes radiation exposure data for exposures received during this examination. FINDINGS: Lower neck: Normal thyroid. Lungs: Centrilobular emphysema scattered thickened reticular markings in the periphery of both lungs. There are small prevascular lymph nodes no mediastinal adenopathy. Heart/Vascular Structures: Normal heart size. No pericardial effusion. Lymph Nodes: No adenopathy Pleura: Mild scattered pleural thickening bilaterally Musculoskeletal: No acute osseous abnormality. Soft tissues: Normal. Upper abdomen: Limited portions of the upper abdomen are unremarkable. IMPRESSION: 1. Findings suggesting centrilobular emphysema 2. Peripherally oriented thickened interstitial Aniket reticulations in both lung chavira. 3. There is no mediastinal adenopathy however there is small prevascular lymph nodes. 4. Pulmonary arteries the upper limits of normal measuring 3.9 cm suggesting pulmonary artery hyperte nsion. Radiation optimization: All CT scans at this facility use at least one of these dose optimization mavr hniques: automated exposure control mA and/or kV adjustment per patient size (includes targeted exam s where dose is matched to clinical indication) or iterative reconstruction.
[2024-08-30] MEDS: MELATONIN 5 MG TAB PO SCH (21:18)
[2024-08-31] VITALS (8 sets, daily range): BP systolic 103–155; BP diastolic 45–77; PULSE 72–92; RESP 16–19; TEMP 97.3–98; O2SAT 90–93
[2024-08-31] MEDS: PANTOPRAZOLE 40 MG TAB PO SCH (05:58)
[2024-08-31 07:04] LABS: Chloride 105 mmol/L (98-107); Potassium 3.9 mmol/L (3.5-5.1); Sodium 140 mmol/L (136-145)
[2024-08-31 07:05] LABS: Anion Gap 10 (5-15); Carbon Dioxide 25 mmol/L (20-31)
[2024-08-31 07:10] LABS: BUN/Creatinine Ratio 33.8 (10.0-20.0); Blood Urea Nitrogen 23 mg/dL (9-23)
[2024-08-31 07:11] LABS: Magnesium 2.2 mg/dL (1.6-2.6)
[2024-08-31 07:15] LABS: Glucose 145 mg/dL (74-106)
[2024-08-31] MEDS: AZITHROMYCIN 250 MG TAB PO SCH (10:23)
[2024-08-31] MEDS: FUROSEMIDE 20 MG/2 ML VIAL IV SCH (10:23)
--- NOTE | 2024-08-31 11:15 | DVHPN2 ---
Subjective The patient is seen and examined at bedside. The patient feel little bit better. Less shortness for breath. Reviewed: Care Plan, H&P, Labs, Medications, Previous Orders, Radiology Changes from previous H/P or p: No Changes Objective Vitals Vital Signs Date Time Temp Pulse Resp B/P (MAP) Pulse Ox O2 Delivery O2 Flow Rate FiO2 08/31/24 10:23 155/77 08/31/24 06:02 93 Room Air* 0 21 08/31/24 05:00 98.0 76 19 98.0 Intake/Output Intake and Output 08/31/24 07:00 Intake Total 1980 ml Balance 1980 ml Intake Oral 1680 ml IV Total 300 ml # Voids 9 # Bowel Movements 2 General Appearance: Alert, Oriented X3, Cooperative, mild distress HEENT: Atraumatic, PERRLA, EOMI, Mucous membr. moist/pink Neck: Supple Lungs: Other (Wheezing bilateral, no rales rhonchi. Decreased breath sounds.) Cardiovascular: Regular rate, Normal S1, Normal S2, No murmurs, Gallops, Rubs Abdomen: Normal bowel sounds, Soft, No tenderness Neuro: Cranial nerves 3-12 NL Psych/Mental Status: Mental status NL Medications Current Medications Medications Dose Ordered Sig/Avinash Route Start Time Stop Time Status Last Admin Dose Admin Pravastatin Sodium 20 mg HS PO 08/29/24 22:00 08/30/24 21:18 20 MG Amlodipine Besylate 5 mg DAILY PO 08/30/24 10:00 08/31/24 10:23 5 MG Ceftriaxone Sodium 50 ml @ 100 mls/hr DAILY@09 IV 08/30/24 09:00 08/31/24 08:28 100 MLS/HR Ondansetron HCl 4 mg Q4HP PRN IV 08/29/24 19:30 Enoxaparin Sodium 40 mg DAILY SC 08/30/24 10:00 08/31/24 10:24 40 MG Acetaminophen 650 mg Q6HP PRN PO 08/29/24 19:30 08/31/24 08:28 650 MG Guaifenesin/ Dextromethorphan 10 ml Q4HP PRN PO 08/30/24 04:30 Azithromycin 250 mg DAILY PO 08/31/24 10:00 08/31/24 10:23 250 MG Methylprednisolone Sodium Succinate 40 mg Q6HR IV 08/30/24 18:00 08/31/24 05:58 40 MG Pantoprazole Sodium 40 mg DAILY@0600 PO 08/31/24 06:00 08/31/24 05:58 40 MG Furosemide 20 mg DAILY IV 08/31/24 10:00 08/31/24 10:23 20 MG Melatonin 5 mg HS PO 08/30/24 22:00 08/30/24 21:18 5 MG Laboratory Results Laboratory Tests 08/29/24 14:45 08/31/24 06:31 Chemistry Test 08/31/24 06:31 Calcium Level 10.0 mg/dL (8.7-10.4) Magnesium Level 2.2 mg/dL (1.6-2.6) Labs and/or images reviewed: Labs reviewed by me Assessment/Plan Assessment/Plan Acute on chronic hypoxic respiratory failure Community-acquired pneumonia COPD Hypertension Continuing current management. Continuing with nebulizer. Continuing with IV antibiotic. Continuing with Solu-Medrol. Encouraged the patient to be out of bed and ambulate. The patient desat when we wean off oxygen . We will try to wean off oxygen if patient tolerated. This medical document was created using an electronic medical record system with [employer] direct computerized dictation system. Although this document has been carefully reviewed, there may still be some phonetic and typographical errors. These areas are purely typographical due to imperfections of the software programs, and do not reflect any compromise in the patient's medical care. Plan discussed with: Patient Date of Service: August 31, 2024 Billing Provider: BRANDAN WINTERS MD Common Visit Codes: [id number] INP/OBS CARE(HIGH) BRANDAN WINTERS MD August 31, 2024 11:15
[2024-08-31] MEDS: methylPREDNISolone SOD SUCC 40 MG/ML VL IV SCH (22:42)
[2024-09-01 01:00] VITALS: BP 118/63; PULSE 72; RESP 16; TEMP 97.9; O2SAT 93
[2024-09-01 05:00] VITALS: BP 110/57; PULSE 80; RESP 16; TEMP 97.9; O2SAT 94
[2024-09-01 09:00] VITALS: BP 144/71; PULSE 66; RESP 16; TEMP 97.4; O2SAT 90
--- NOTE | 2024-09-01 11:23 | DVHDS2 ---
Discharge Summary Date of Admission August 29, 2024 at 19:17 Date of Discharge: September 01, 2024 Admitting Diagnosis Acute on chronic hypoxic respiratory failure Community-acquired pneumonia COPD Hypertension Labs/Diagnostic Data: Laboratory Results Test 08/31/24 06:31 08/29/24 17:44 08/29/24 14:45 Sodium Level 140 mmol/L (136-145) Potassium Level 3.9 mmol/L (3.5-5.1) Chloride Level 105 mmol/L (98-107) Carbon Dioxide Level 25 mmol/L (20-31) Anion Gap 10 (5-15) Blood Urea Nitrogen 23 mg/dL (9-23) Creatinine 0.68 mg/dL (0.550-1.02) Glomerular Filtration Rate Calc 89 mL/min (>90) BUN/Creatinine Ratio 33.8 (10.0-20.0) Serum Glucose 145 mg/dL (74-106) Calcium Level 10.0 mg/dL (8.7-10.4) Magnesium Level 2.2 mg/dL (1.6-2.6) Troponin I High Sensitivity 7 ng/L (</=34) White Blood Count 5.7 10^3/uL (4.4-10.8) Red Blood Count 4.45 10^6/uL (4.0-5.20) Hemoglobin 14.0 g/dL (12.2-16.2) Hematocrit 42.2 % (36.0-46.0) Mean Corpuscular Volume 94.8 fL (80.0-100.0) Mean Corpuscular Hemoglobin 31.4 pg (28.0-32.0) Mean Corpuscular Hemoglobin Concent 33.1 g/dL (32.0-36.0) Red Cell Distribution Width 14.6 % (11.8-14.3) Platelet Count 274 10^3/uL (140-450) Mean Platelet Volume 7.5 fL (6.9-10.8) Neutrophils (%) (Auto) 60.0 % (37.0-80.0) Lymphocytes (%) (Auto) 24.3 % (10.0-50.0) Monocytes (%) (Auto) 13.4 % (0.0-12.0) Eosinophils (%) (Auto) 1.9 % (0.0-7.0) Basophils (%) (Auto) 0.4 % (0.0-2.0) Neutrophils # (Auto) 3.4 10 ^3/uL (1.6-8.6) Lymphocytes # (Auto) 1.4 10 ^3/uL (0.4-5.4) Monocytes # (Auto) 0.8 10 ^3/uL (0-1.3) Eosinophils # (Auto) 0.1 10 ^3/uL (0-0.8) Basophils # (Auto) 0 10 ^3/uL (0-0.2) Nucleated Red Blood Cells 0.1 % B-Type Natriuretic Peptide 26.24 pg/mL (0-100) Other Laboratory Tests 08/31/24 06:31 08/29/24 14:45 Brief Hx & Hospital Course: This is a 79 years old female come to emergency department because severe shortness for breath. The patient has two day history worsening shortness for breath. She had tried her inhaler and nebulizer without relief. The patient also had a nonproductive cough. No fever or chill. The patient was seen in the emergency department. Her saturation oxygen was low at the time she came to emergency department. She gets a nebulizer treatment and her saturation oxygen come up to 94%. She continuing to wheeze and has shortness for breath so she was admitted for further evaluation. The patient's CT scan of the chest showed central lobar emphysema,peripherally oriented thickened interstitial Aniket reticulations in both lung chavira. There is no mediastinal adenopathy however there is small prevascular lymph nodes. Pulmonary arteries the upper limits of normal measuring 3.9 cm suggesting pulmonary artery hypertension. The patient's chest x-ray showed pattern of pneumonia The patient was given IV antibiotic Rocephin and Zithromax. The patient also was given Solu-Medrol and nebulizer. Multiple attempts to remove oxygen but she continuing to desat every time she off oxygen for couple day. Today the patient improved. The patient is able to get off oxygen without desat. Her saturation oxygen between 92-94% off oxygen. I am going to discharge her home today. Advised her to follow up with primary care physician 1-2 weeks. Follow up with pulmonology as outpatient per schedule for her COPD treatment. Activity as tolerated. Diet per home diet. Physical exam: HEENT: Normocephalic atraumatic pupils equal react to light and accommodation. Extraocular muscles intact, conjunctiva pink, oropharynx moist, no thrush, no exudate. Lymphatic: No lymphadenopathy Cardiovascular exam: S1, S2 was heard. No murmurs, rubs, gallops Lung: Clear on auscultation bilaterally, no wheeze, rale, rhonchi. GI: Abdominal soft, nondistended, nontenderness, positive bowel sounds. Extremity: No crepitus, cyanosis, edema. Pedal pulses present bilateral. Full range of motion. Skin: Normal turgor, no rash. Psych: Alert, oriented x3. Neurology: No focal deficits, cranial nerve II to XII grossly intact. This medical document was created using an electronic medical record system with [employer] direct computerized dictation system. Although this document has been carefully reviewed, there may still be some phonetic and typographical errors. These areas are purely typographical due to imperfections of the software programs, and do not reflect any compromise in the patient's medical care. Condition at Discharge: Stable Final Diagnosis/Problems List Acute on chronic hypoxic respiratory failure Community-acquired pneumonia COPD Hypertension Pulmonary hypertension Discharge Disposition: Home Discharge Statement: "Patient was advised to return to the ER or call 911 if any headaches, dizziness, shortness of breath, chest pain, abdominal pain, bleeding, fevers, or worsening of medical condition. Patient was counseled about treatment plan, medications, possible side effects, patient�verbalized understanding. All questions were answered to the best of my ability. This discharge took greater then 30 minutes in planning, reviewing documentation, counseling the patient, and discussing with other team members." ASSESSMENT ASSESSMENT Assessment Date of Service: September 01, 2024 Billing Provider: BRANDAN WINTERS MD Common Visit Codes: 16531-UDP/OBS DISCH DAY >30min BRANDAN WINTERS MD September 01, 2024 11:23
[2024-09-01] MEDS ORDERED: AZIT-185 PO (11:24)
[2024-09-01] MEDS ORDERED: METH4PAK PO (11:26)
[2024-09-01 13:00] VITALS: BP 129/62; PULSE 81; RESP 16; TEMP 97.7; O2SAT 91
== END 2024-09-01 13:55 | disposition home or self-care (01) | DRG 177 ==
LOC: ER 13:52 → OVERFLOW 19:17 → CENTRAL 21:12
PROVIDERS: ADMIT Internal Medicine; ATTEND Internal Medicine
DX: J15.69 Pneumonia due to other Gram-negative bacteria (principal); J96.21 Acute and chronic respiratory failure with hypoxia; J44.0 Chronic obstructive pulmonary disease with (acute) lower respiratory infection; I10 Essential (primary) hypertension; E78.5 Hyperlipidemia, unspecified; Z98.51 Tubal ligation status; Z91.041 Radiographic dye allergy status; Z91.09 Other allergy status, other than to drugs and biological substances; Z79.899 Other long term (current) drug therapy; Z88.8 Allergy status to other drugs, medicaments and biological substances; J15.9 Unspecified bacterial pneumonia
CPT/HCPCS: 36415; 71046; 71250; 80048; 83735; 83880; 84484; 85025; 93005; 94640; 96365; 96375; 99291; G0378

== ENCOUNTER → 2024-09-06 | Outpatient (CLI) | payer OTHER ==
[~2024-09-06] MED LIST changes: +AZIT-185 PO; -LEVO500T91 PO; +METH4PAK PO
[2024-09-06 14:04] LABS: Basophils # (auto) 0.1 10 ^3/uL (0-0.2); Basophils % (auto) 0.4 % (0.0-2.0); Eosinophils # (auto) 0.1 10 ^3/uL (0-0.8); Eosinophils % (auto) 0.3 % (0.0-7.0); Hematocrit 46.8 % (36.0-46.0); Hemoglobin 15.2 g/dL (12.2-16.2); Lymphocytes # (auto) 1.8 10 ^3/uL (0.4-5.4); Lymphocytes % (auto) 8.8 % (10.0-50.0); Mean Corpuscular Hgb Conc. 32.6 g/dL (32.0-36.0); Mean Corpuscular Volume 95.2 fL (80.0-100.0); Monocytes # (auto) 1.7 10 ^3/uL (0-1.3); Monocytes % (auto) 7.9 % (0.0-12.0); Neutrophils # (auto) 17.2 10 ^3/uL (1.6-8.6); Neutrophils % (auto) 82.6 % (37.0-80.0); Platelet Count (auto) 386 10^3/uL (140-450); Red Blood Cells 4.91 10^6/uL (4.0-5.20); Red Cell Distribution Width 14.1 % (11.8-14.3); White Blood Cell 20.9 10^3/uL (4.4-10.8)
[2024-09-06 14:28] LABS: Alanine Aminotransferase 24 U/L (7-40); Albumin 4.6 g/dL (3.2-4.8); Alkaline Phosphatase 93 U/L (46-116); Anion Gap 10 (5-15); Aspartate Aminotransferase 15 U/L (13-40); BUN/Creatinine Ratio 29.7 (10.0-20.0); Bilirubin, Total 0.4 mg/dL (0.2-1.0); Blood Urea Nitrogen 19 mg/dL (9-23); Calcium 10.1 mg/dL (8.7-10.4); Carbon Dioxide 28 mmol/L (20-31); Chloride 100 mmol/L (98-107); Glucose 105 mg/dL (74-106); Potassium 4.7 mmol/L (3.5-5.1); Sodium 138 mmol/L (136-145); Total Protein 7.7 g/dL (5.7-8.2)
== END | disposition home or self-care (01) ==
LOC: LAB 13:47
PROVIDERS: ATTEND Internal Medicine
DX: I13.10 Hypertensive heart and chronic kidney disease without heart failure, with stage 1 through stage 4 chronic kidney disease, or unspecified chronic kidney disease (principal); N18.9 Chronic kidney disease, unspecified
CPT/HCPCS: 36415; 80053; 85025

== ENCOUNTER 2024-09-22 16:30 | Inpatient (IN) | payer OTHER ==
[~2024-09-22] VITALS: Ht 149.9 cm; Wt 75.2 kg
--- NOTE | 2024-09-22 16:51 | ED.PDOC ---
History of Present Illness HPI Comments 79-year-old female with PMHx Diverticulitis presents with a chief complaint of rectal bleeding x 3 days with associated abdomen bloating. Patient states that for the past 3 days she has been noticing blood on the toilet paper whenever she uses the restroom. Patient now reports that there was blood in the toilet today and that it was close to a maroon color. Patient mentions that her abdomen also feels bloated at this time. Time Seen by MD: 16:45 Primary Care Provider: Rica Reviewed Notes: Nurses Notes, Medications, Allergies Allergies: Coded Allergies: Iodine (Verified Allergy, Unknown, 12/18/22) Lactose Intolerance (GI) (Verified Allergy, Unknown, 08/30/24) Uncoded Allergies: ADHESIVES (Allergy, Unknown, 04/26/23) Home Meds Active Scripts Methylprednisolone (Medrol Dosepak) 4 Mg Rad, 4 MG PO UD, #21 TAB UAD Prov:BRANDAN WINTERS MD 09/01/24 Azithromycin (ZITHROMAX TABLET) 250 Mg Tb, 250 MG PO DAILY, #6 TAB Take 2 tabs the first day, then 1 tab daily until finish Prov:BRANDAN WINTERS MD 09/01/24 Cholecalciferol (VITAMIN D3) 2,000 Unit Tab, 1 TAB PO DAILY, #30 TAB 0 Refills Prov:TINO CORTES RESIDENT 06/08/24 Meclizine Hcl (Meclizine Hcl) 12.5 Mg Tab, 2 TAB PO TID PRN, #30 TAB Prov:TINO CORTES RESIDENT 06/08/24 Ipratropium [place] Hfa (Atrovent Hfa) 17 Mcg Aer, 2 PUFF INH QID, #12.9 GRAMS 5 Refills Prov:DARLENE BONILLA PLASTIC INSTALLER 02/11/24 Amlodipine Besylate (Amlodipine Besylate) 10 Mg Tab, 0.5 TAB PO DAILY for 30 Days, #15 TAB 5 Refills Prov:DARLENE BONILLA PLASTIC INSTALLER 11/18/23 Pantoprazole Sodium Sesquihydr (Pantoprazole Sodium) 40 Mg Tab, 40 MG PO DAILY for 30 Days, #30 TAB Prov:JANIE ESTRELLA RESIDENT 06/20/23 Ondansetron Odt 4MG Tab (ZOFRAN PO) 4 Mg Tb, 4 MG PO Q6HPRN PRN, #20 TAB ODT TAB-DISSOLVE IN MOUTH, THEN SWALLOW Prov:GEOVANNY ROSALES DO 04/26/23 Reported Medications Pravastatin Sodium (PRAVACHOL TABLET) 20 Mg Tb, 1 TAB PO DAILY 07/17/22 Information Source: Patient Mode of Arrival: Ambulatory Severity: Moderate Timing: Days Duration: Since onset Prehospital treatment: None Past Medical History PAST MEDICAL HISTORY: COPD, High Lipids, HTN Surgical History: Tubal Ligation COMPRESS ENGINEER History: Denies all COMPRESS ENGINEER Hx Family History Family History: Reviewed,noncontributory to illness, Unknown Social History Smoker: Non-Smoker Alcohol: Denies ETOH Use Drugs: Denies Drug Use Lives In: Home Constitutional: denies: chills, diaphoresis, fatigue, fever, malaise, sweats, weakness, others EENTM: denies: blurred vision, double vision, ear bleeding, ear discharge, ear drainage, ear pain, ear ringing, eye pain, eye redness, hearing loss, mouth pain, mouth swelling, nasal discharge, nose bleeding, nose congestion, nose pain, photophobia, tearing, throat pain, throat swelling, voice changes, others Respiratory: denies: cough, hemoptysis, orthopnea, SOB at rest, shortness of breath, SOB with excertion, stridor, wheezing, others Cardiovascular: denies: chest pain, dizzy spells, diaphoresis, Dyspnea on exertion, edema, irregular heart beat, left arm pain, lightheadedness, palpitations, PND, syncope, others Gastrointestinal: reports: rectal bleeding; denies: abdomen distended, abdominal pain, blood streaked bowels, constipated, diarrhea, dysphagia, difficulty swallowing, hematemesis, melena, nausea, poor appetite, poor fluid intake, rectal pain, vomiting, others Genitourinary: denies: abnormal vagina bleeding, burning, dyspareunia, dysuria, flank pain, frequency, hematuria, incontinence, pain, , vagina discharge, urgency, others Neurological: denies: dizziness, fainting, headache, left sided numbness, left sided weakness, numbness, paresthesia, pre-existing deficit, right sided numbness, right sided weakness, seizure, speech problems, tingling, tremors, weakness, others Musculoskeletal: denies: back pain, gout, joint pain, joint swelling, muscle pain, muscle stiffness, neck pain, others Integumetry: denies: bruises, change in color, change in hair/nails, dryness, laceration, lesions, lumps, rash, wounds, others Allergic/Immunocompromised: denies: Difficulty Healing, Frequent Infections, Hives, Itching, others Hematologic/Lymphatic: denies: anemia, blood clots, easy bleeding, easy bruising, swollen glands, others Endocrine: denies: excessive hunger, excessive sweating, excessive thirst, excessive urination, flushing, intolerance to cold, intolerance to heat, unexplained weight gain, unexplained weight loss, others Psychiatric: denies: anxiety, bipolar disorder, depression, hopeless, panic disorder, schizophrenia, sleepless, suicidal, others All Other Systems: Reviewed and Negative Physical Exam General Appearance: Moderate Distress HEENT: Normal ENT Inspection, Pharynx Normal, TMs Normal Neck: Full Range of Motion, Non-Tender, Normal, Normal Inspection Respiratory: Chest Non-Tender, Lungs Clear, No Accessory Muscle Use, No Respiratory Distress, Normal Breath Sounds Cardiovascular: No Edema, No JVD, No Murmur, No Gallop, Normal Peripheral Pulses, Regular Rate/Rhythm Breast Exam: Deferred Gastrointestinal: LLQ, No Organomegaly, No Pulsatile Mass, Normal Bowel Sounds, Soft, Tenderness Genitalia: Deferred Pelvic: Deferred Rectal: Deferred Extremities: No calf tenderness, Normal capillary refill, Normal inspection, Normal range of motion, Non-tender, No pedal edema Musculoskeletal : Apperance: Normal Neurologic: Alert, gum cook II-XII nml as Tested, No Motor Deficits, Normal Affect, Normal Mood, No Sensory Deficits Cerebellar Function: Normal Reflexes: Normal Skin: Dry, Normal Color, Warm Lymphatic: No Adenopathy Was a procedure done? Was a procedure done?: No Differential Dx Considerations may include: Diverticulitis, generalized weakness, diverticulosis, intractable abdominal pain X-Ray, Labs, Meds, VS Vital Signs Date Time Temp Pulse Resp B/P (MAP) Pulse Ox O2 Delivery O2 Flow Rate FiO2 09/22/24 16:53 98.5 102 16 116/71 (86) 96 98.5 Lab Test 09/22/24 17:01 Range/Units White Blood Count 7.9 4.4-10.8 10^3/uL Red Blood Count 4.05 4.0-5.20 10^6/uL Hemoglobin 13.0 12.2-16.2 g/dL Hematocrit 38.8 36.0-46.0 % Mean Corpuscular Volume 95.8 80.0-100.0 fL Mean Corpuscular Hemoglobin 32.0 28.0-32.0 pg Mean Corpuscular Hemoglobin Concent 33.4 32.0-36.0 g/dL Red Cell Distribution Width 14.5 H 11.8-14.3 % Platelet Count 285 140-450 10^3/uL Mean Platelet Volume 7.5 6.9-10.8 fL Neutrophils (%) (Auto) 70.3 37.0-80.0 % Lymphocytes (%) (Auto) 18.8 10.0-50.0 % Monocytes (%) (Auto) 8.1 0.0-12.0 % Eosinophils (%) (Auto) 2.5 0.0-7.0 % Basophils (%) (Auto) 0.3 0.0-2.0 % Neutrophils # (Auto) 5.6 1.6-8.6 10 ^3/uL Lymphocytes # (Auto) 1.5 0.4-5.4 10 ^3/uL Monocytes # (Auto) 0.6 0-1.3 10 ^3/uL Eosinophils # (Auto) 0.2 0-0.8 10 ^3/uL Basophils # (Auto) 0 0-0.2 10 ^3/uL Nucleated Red Blood Cells 0.0 % Prothrombin Time 10.9 9.3-11.8 sec Prothrombin Time INR 1.03 0.9-1.15 Activated Partial Thromboplast Time 25.5 24.5-34.5 SEC Sodium Level 142 136-145 mmol/L Potassium Level 3.7 3.5-5.1 mmol/L Chloride Level 108 H 98-107 mmol/L Carbon Dioxide Level 26 20-31 mmol/L Anion Gap 8 5-15 Blood Urea Nitrogen 13 9-23 mg/dL Creatinine 0.73 0.550-1.02 mg/dL Glomerular Filtration Rate Calc 84 >90 mL/min BUN/Creatinine Ratio 17.8 10.0-20.0 Serum Glucose 136 H 74-106 mg/dL Calcium Level 9.8 8.7-10.4 mg/dL The patient's CBC is within normal limits The chemistry panel is within normal limits The CAT scan of the abdomen and pelvis shows: IMPRESSION: 1. Severe descending and sigmoid colon diverticulosis without evidence of diverticulitis.Slightly irregular liver contour 2. Suggestive of developing cirrhosis. No hepatic steatosis or discrete hepatic lesion. No evidence of portal hypertension. The patient is still having a lower GI bleed and we are concerned that there may be some subtle diverticulitis The patient is being admitted at this time Images Reviewed?: Images reviewed and evaluated by me Time of 1ST Reevaluation: 17:15 Reevaluation 1ST: Unchanged Patient Education/Counseling: Diagnosis, Treatment, Prognosis Family Education/Counseling: Diagnosis, Treatment, Prognosis Departure 1 Departure Time of Disposition: 18:38 Impression: Primary Impression: Intractable abdominal pain Additional Impressions: Diverticulosis Lower GI bleed Disposition: ADMITTED INPATIENT Admit to: Med Surg Condition: Fair Critical Care Note Critical Care Time?: No Stability Stability form required: Yes Unstable for transfer: ED Physician Assesment (Clinical assesment) Heart Score Heart Score: Heart Score Response (Comments) Value History N/A 0 EKG N/A 0 Age N/A 0 Risk Factors N/A 0 Troponin N/A 0 Total 0 I personally scribed for DEEJAY KO MD ([email or web address]) on 09/22/24 at 16:51. Electronically submitted by Jonathan Garcia ([email or web address]). DEEJAY KO MD September 22, 2024 16:51
[2024-09-22 17:32] LABS: Basophils # (auto) 0 10 ^3/uL (0-0.2); Basophils % (auto) 0.3 % (0.0-2.0); Eosinophils # (auto) 0.2 10 ^3/uL (0-0.8); Eosinophils % (auto) 2.5 % (0.0-7.0); Hematocrit 38.8 % (36.0-46.0); Lymphocytes # (auto) 1.5 10 ^3/uL (0.4-5.4); Lymphocytes % (auto) 18.8 % (10.0-50.0); Mean Corpuscular Hgb Conc. 33.4 g/dL (32.0-36.0); Mean Corpuscular Volume 95.8 fL (80.0-100.0); Monocytes # (auto) 0.6 10 ^3/uL (0-1.3); Monocytes % (auto) 8.1 % (0.0-12.0); Neutrophils # (auto) 5.6 10 ^3/uL (1.6-8.6); Neutrophils % (auto) 70.3 % (37.0-80.0); Platelet Count (auto) 285 10^3/uL (140-450); Red Blood Cells 4.05 10^6/uL (4.0-5.20); Red Cell Distribution Width 14.5 % (11.8-14.3); White Blood Cell 7.9 10^3/uL (4.4-10.8)
[2024-09-22 17:36] LABS: Potassium 3.7 mmol/L (3.5-5.1); Sodium 142 mmol/L (136-145)
[2024-09-22 17:37] LABS: Anion Gap 8 (5-15); Carbon Dioxide 26 mmol/L (20-31)
[2024-09-22 17:38] LABS: Calcium 9.8 mg/dL (8.7-10.4)
[2024-09-22 17:43] LABS: BUN/Creatinine Ratio 17.8 (10.0-20.0); Blood Urea Nitrogen 13 mg/dL (9-23)
[2024-09-22 17:47] LABS: INR 1.03 (0.9-1.15); Partial Thromboplastin Time 25.5 SEC (24.5-34.5); Prothrombin Time 10.9 sec (9.3-11.8)
[2024-09-22 18:09] LABS: Chloride 108 mmol/L (98-107); Glucose 136 mg/dL (74-106)
--- NOTE | 2024-09-22 18:14 | DVH ---
Procedure: CT CT AB PEL WO CON-NO ORAL OR IV 09/22/2024 05:15 PM Indication: pain llq with gi bleeding Comparison Study: CT CT AB PEL WO CON-NO ORAL OR IV on DOS: 06/16/23 Technique: Axial images were obtained and reformatted in coronal and sagittal planes. All CT scans at this medical facility are performed using dose modulation techniques as appropriate to a performed e xam including the following: Automated exposure control was utilized; adjustment of the MA and/or KV according to patient size; and use of iterative reconstruction technique. CT Dose: CTDI volume is 13. 3 mGy. Dose-length product is 634.64 mGy*cm FINDINGS: Lower Chest: Bronchiectasis and interstitial thickening noted in the bilateral lower lung zones. Cor onary artery calcification noted. The heart is mildly enlarged. Hepatobiliary: Slightly irregular liver contour may reflect cirrhosis. No hepatic steatosis. No discr ete lesion. No intrahepatic or extrahepatic ductal dilatation. No calcified gallstones or gallbladde r wall thickening. Spleen: Unremarkable. Pancreas: Unremarkable. Adrenal Glands: Unremarkable. tract: The kidneys are normal in size bilaterally without hydronephrosis or nephrolithiasis. The u rinary bladder is unremarkable. GI tract: The stomach is grossly normal in appearance. No evidence of small bowel obstruction. Descen ding and sigmoid colon diverticulosis without diverticulitis The appendix is normal. Lymphatics: No mesenteric, retroperitoneal or periportal lymphadenopathy. Vasculature: Aorta is normal in caliber. Scattered calcified plaques are noted. Pelvic Organs: Unremarkable Bones/soft tissues: No acute abnormality. Degenerative changes of the lumbar spine noted. Small fat-c ontaining umbilical hernia. Other: None. IMPRESSION: 1. Severe descending and sigmoid colon diverticulosis without evidence of diverticulitis.Slightly irr egular liver contour 2. Suggestive of developing cirrhosis. No hepatic steatosis or discrete hepatic lesion. No evidence of portal hypertension.
[2024-09-22] MEDS ORDERED: ONDANSETRON HCL 4 MG/2 ML VIAL IV PRN (19:30)
[2024-09-22] MEDS: PANTOPRAZOLE 40 MG/10 ML VIAL INJ IV ONE (21:15)
--- NOTE | 2024-09-22 21:35 | DVHHP2 ---
History of Present Illness Reason for Visit: GI bleed History of Present Illness 79-year-old female presents for evaluation possible GI bleed. Patient reports a two day history of noticing blood on the toilet paper. She states that today that was blood in the toilet bowl. Denies nausea or vomiting. No abdominal pain. No other acute symptoms. Past Medical History Hypertension, COPD and dyslipidemia Family History Tubal ligation Smoke: No ALCOHOL: none Drugs: None Review of Systems Review of Systems Review of systems are currently negative otherwise addressed in HPI. Allergies: Coded Allergies: Iodine (Verified Allergy, Unknown, 12/18/22) Lactose Intolerance (GI) (Verified Allergy, Unknown, 08/30/24) Uncoded Allergies: ADHESIVES (Allergy, Unknown, 04/26/23) Medications Current Medications Medications Dose Ordered Sig/Avinash Route Start Time Stop Time Status Last Admin Dose Admin Pantoprazole Sodium 40 mg DAILY IV 09/23/24 10:00 Ondansetron HCl 4 mg Q4HP PRN IV 09/22/24 19:30 Exam Vital Signs Vital Signs Date Time Temp Pulse Resp B/P (MAP) Pulse Ox O2 Delivery O2 Flow Rate FiO2 09/22/24 21:15 Room Air* 0 21 09/22/24 20:39 84 16 95 09/22/24 20:39 98.3 157/76 (103) 98.3 Exam Gen: 79-year-old female in no apparent distress. Skin: Warm, dry, normal color and texture, no rash. HEENT: Normocephalic atraumatic, mucous membranes moist and pink. Neck: Cervical and supraclavicular nodes normal without enlargement, trachea is midline, thyroid gland is normal without masses. Pulmonary: Clear to auscultation and percussion bilaterally. Cardiac: Regular rate and rhythm. No murmur Abdomen: Soft, nontender, nondistended, bowel sounds present all 4 quadrants, no guarding, no rigidity, no organomegaly. Extremities: No cyanosis, clubbing, no edema Neuro: Cranial nerves II through XII grossly intact, normal affect and speech, no focal motor deficits. Labs/Xrays ORDERING PHYSICIAN: DEEJAY KO MD PROCEDURE(s): ABPL - CT AB PEL WO CON-NO ORAL OR IV REASON: pain llq with gi bleeding ORDER NUMBER(s): [id number], ACCESSION NUMBER(s): [id number] Procedure: CT CT AB PEL WO CON-NO ORAL OR IV 09/22/2024 05:15 PM Indication: pain llq with gi bleeding Comparison Study: CT CT AB PEL WO CON-NO ORAL OR IV on DOS: 06/16/23 Technique: Axial images were obtained and reformatted in coronal and sagittal planes. All CT scans at this medical facility are performed using dose modulation techniques as appropriate to a performed exam including the following: Automated exposure control was utilized; adjustment of the MA and/or KV according to patient size; and use of iterative reconstruction technique. CT Dose: CTDI volume is 13.3 mGy. Dose-length product is 634.64 mGy*cm FINDINGS: Lower Chest: Bronchiectasis and interstitial thickening noted in the bilateral lower lung zones. Coronary artery calcification noted. The heart is mildly enlarged. Hepatobiliary: Slightly irregular liver contour may reflect cirrhosis. No hepatic steatosis. No discrete lesion. No intrahepatic or extrahepatic ductal dilatation. No calcified gallstones or gallbladder wall thickening. Spleen: Unremarkable. Pancreas: Unremarkable. Adrenal Glands: Unremarkable. tract: The kidneys are normal in size bilaterally without hydronephrosis or nephrolithiasis. The urinary bladder is unremarkable. GI tract: The stomach is grossly normal in appearance. No evidence of small bowel obstruction. Descending and sigmoid colon diverticulosis without diverticulitis The appendix is normal. Lymphatics: No mesenteric, retroperitoneal or periportal lymphadenopathy. Vasculature: Aorta is normal in caliber. Scattered calcified plaques are noted. Pelvic Organs: Unremarkable Bones/soft tissues: No acute abnormality. Degenerative changes of the lumbar spine noted. Small fat-containing umbilical hernia. Other: None. IMPRESSION: 1. Severe descending and sigmoid colon diverticulosis without evidence of diverticulitis.Slightly irregular liver contour 2. Suggestive of developing cirrhosis. No hepatic steatosis or discrete hepatic lesion. No evidence of portal hypertension. Labs Test 09/22/24 17:01 Range/Units White Blood Count 7.9 4.4-10.8 10^3/uL Red Blood Count 4.05 4.0-5.20 10^6/uL Hemoglobin 13.0 12.2-16.2 g/dL Hematocrit 38.8 36.0-46.0 % Mean Corpuscular Volume 95.8 80.0-100.0 fL Mean Corpuscular Hemoglobin 32.0 28.0-32.0 pg Mean Corpuscular Hemoglobin Concent 33.4 32.0-36.0 g/dL Red Cell Distribution Width 14.5 H 11.8-14.3 % Platelet Count 285 140-450 10^3/uL Mean Platelet Volume 7.5 6.9-10.8 fL Neutrophils (%) (Auto) 70.3 37.0-80.0 % Lymphocytes (%) (Auto) 18.8 10.0-50.0 % Monocytes (%) (Auto) 8.1 0.0-12.0 % Eosinophils (%) (Auto) 2.5 0.0-7.0 % Basophils (%) (Auto) 0.3 0.0-2.0 % Neutrophils # (Auto) 5.6 1.6-8.6 10 ^3/uL Lymphocytes # (Auto) 1.5 0.4-5.4 10 ^3/uL Monocytes # (Auto) 0.6 0-1.3 10 ^3/uL Eosinophils # (Auto) 0.2 0-0.8 10 ^3/uL Basophils # (Auto) 0 0-0.2 10 ^3/uL Nucleated Red Blood Cells 0.0 % Prothrombin Time 10.9 9.3-11.8 sec Prothrombin Time INR 1.03 0.9-1.15 Activated Partial Thromboplast Time 25.5 24.5-34.5 SEC Sodium Level 142 136-145 mmol/L Potassium Level 3.7 3.5-5.1 mmol/L Chloride Level 108 H 98-107 mmol/L Carbon Dioxide Level 26 20-31 mmol/L Anion Gap 8 5-15 Blood Urea Nitrogen 13 9-23 mg/dL Creatinine 0.73 0.550-1.02 mg/dL Glomerular Filtration Rate Calc 84 >90 mL/min BUN/Creatinine Ratio 17.8 10.0-20.0 Serum Glucose 136 H 74-106 mg/dL Calcium Level 9.8 8.7-10.4 mg/dL Assessment/Plan Assessment/Plan Assessment GI bleed Diverticulosis Plan Admit the patient to [facility] to the hospitalist Monitor H&H NPO GI consult Continue treatment per orders. Plan discussed with: Patient My Orders Orders - BOYD DOUGHERTY Procedure Category Date Status Time Sodium Chloride 0.9% PHA 09/22/24 In Process 19:30 * Gi Dvh Dye Blender CONS 09/22/24 Transmitted 19:21 Hemoglobin & LAB 09/22/24 Logged Hematocrit 22:00 Pantoprazole PHA 09/23/24 In Process (Protonix) 10:00 Basic Metabolic Panel LAB 09/23/24 Verified 04:00 Stool Occult Blood LAB 09/22/24 Logged 19:21 Admit ADMIT 09/22/24 Transmitted 19:21 Ondansetron Hcl PHA 09/22/24 In Process (Zofran) 19:30 Complete Blood Count LAB 09/23/24 Verified 04:00 Npo (Nothing By DIET 09/23/24 Transmitted Mouth) Diet Breakfast Condition: Stable SUNNI 09/22/24 In Process 19:21 Bedrest With Bathroom SUNNI 09/22/24 In Process Privileg 19:21 Date of Service: September 22, 2024 Billing Provider: BOYD DOUGHERTY Common Visit Codes: [id number] INP/OBS CARE (HIGH) BOYD DOUGHERTY September 22, 2024 21:35
[2024-09-22 22:41] VITALS: BP 159/72; PULSE 76; RESP 14; TEMP 97.6; O2SAT 95
[2024-09-22 22:45] LABS: Hematocrit 39.7 % (36.0-46.0); Hemoglobin 13.1 g/dL (12.2-16.2)
[2024-09-22 23:43] VITALS: BP 159/72; PULSE 71; PULSE 76; RESP 14; RESP 16; TEMP 97.6; O2SAT 95; O2SAT 96
[2024-09-23] VITALS (8 sets, daily range): BP systolic 127–164; BP diastolic 60–94; PULSE 71–88; RESP 15–18; TEMP 97–98.2; O2SAT 93–96
[2024-09-23] MEDS: SODIUM CHLORIDE 0.9% 1,000 ML IV ONE (00:45)
[2024-09-23 07:25] LABS: Basophils # (auto) 0 10 ^3/uL (0-0.2); Basophils % (auto) 0.3 % (0.0-2.0); Eosinophils # (auto) 0.2 10 ^3/uL (0-0.8); Hematocrit 35.7 % (36.0-46.0); Hemoglobin 11.7 g/dL (12.2-16.2); Lymphocytes # (auto) 1.7 10 ^3/uL (0.4-5.4); Lymphocytes % (auto) 25.8 % (10.0-50.0); Mean Corpuscular Hemoglobin 31.7 pg (28.0-32.0); Mean Corpuscular Hgb Conc. 32.7 g/dL (32.0-36.0); Mean Corpuscular Volume 97.1 fL (80.0-100.0); Monocytes # (auto) 0.6 10 ^3/uL (0-1.3); Monocytes % (auto) 8.9 % (0.0-12.0); Neutrophils # (auto) 4.1 10 ^3/uL (1.6-8.6); Nucleated Red Blood Cells % 0.1 %; Platelet Count (auto) 259 10^3/uL (140-450); Red Blood Cells 3.67 10^6/uL (4.0-5.20); Red Cell Distribution Width 14.9 % (11.8-14.3); White Blood Cell 6.5 10^3/uL (4.4-10.8)
[2024-09-23 07:37] LABS: Potassium 4.2 mmol/L (3.5-5.1); Sodium 144 mmol/L (136-145)
[2024-09-23 07:38] LABS: Anion Gap 9 (5-15); Calcium 9.4 mg/dL (8.7-10.4); Carbon Dioxide 25 mmol/L (20-31)
[2024-09-23 07:43] LABS: BUN/Creatinine Ratio 23.6 (10.0-20.0); Blood Urea Nitrogen 13 mg/dL (9-23); Chloride 110 mmol/L (98-107); Glucose 86 mg/dL (74-106)
[2024-09-23] MEDS: PANTOPRAZOLE 40 MG/10 ML VIAL INJ IV SCH (10:28)
[2024-09-23] MEDS: hydrALAZINE HCL 20 MG/ML VL IV ONE (10:29)
[2024-09-23] MEDS: amLODIPine BESYLATE 5 MG TAB PO ONE (11:04)
[2024-09-23 11:05] LABS: Bilirubin, Total 0.5 mg/dL (0.2-1.0)
--- NOTE | 2024-09-23 11:42 | DVH ---
INDICATION: cirrhoisis TECHNIQUE: Multiple real-time sonographic images were obtained of the right upper quadrant. COMPARISON: None FINDINGS: The liver demonstrates heterogeneous echotexture without focal mass lesions. The liver jose m ures 13 cm. There is no intrahepatic or extrahepatic ductal dilatation. The common duct measures 0 .4 mm. The gallbladder is without evidence of stone or sludge. The gallbladder wall measures 0.2mm and is within normal limits. The right kidney measures 9 cm. The right kidney is normal in contour, size, and shape. The echoge nicity is normal. There is no hydronephrosis. The pancreas is not well visualized due to overlying bowel gas. IMPRESSION: No sonographic evidence of gallstones or acute cholecystitis. Hepatic steatosis. Hepatic cirrhosis.
--- NOTE | 2024-09-23 14:20 | DVHINCON2 ---
GI Consult Consult Note GI consult note Date of Consultation: 09/23/2024 Chief Complaint: Lower GI bleed Referring Physician: Ady ABRAHAM H&P: 79-year-old female presented with possible GI bleed Patient noticed having some lower abdominal pain which is improving now, patient feels this was triggered with being bloated and gassy. Noticed bowel movement with red blood with wiping on Friday and Friday. Then patient noticed on Friday that her toilet bowl water was tinged with red. Last bowel movement one day ago No nausea vomiting. No history of GERD symptoms Patient had similar symptoms last year status post colonoscopy 06/18/2023 DATE OF OPERATION: 06/18/23 PROCEDURE: Diagnostic colonoscopy. PREOPERATIVE INDICATION: The patient is a 78 -year-old female undergoing colonoscopy for evaluation of lower GI bleed POSTOPERATIVE DIAGNOSES: 1. Moderate to severe sigmoid diverticular disease with some old blood clots and some liquid blood noted in this area but no clear-cut source of active bleeding could be identified at this time 2. Otherwise normal examination up to the cecum with no fresh or old blood noted in the right colon of the transverse colon area, the residual blood and a few clots were noted in the sigmoid 3. 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 Past Medical History: Hypertension, COPD and dyslipidemia Past Surgical History: Tubal ligation Social History: NO smoking, drinking ETOH and use of illegal drugs. Family History: Noncontributory Review of Systems: Constitutional: no fever, chill, weight loss HEENT: no eye pain, no hearing loss, no oral lesion, no scleral icterus Heart: no chest pain, no chest pressure Lung: no cough, no dyspnea with exertion Abdomen: see HPI Physical exam: General: NAD, AAOX3 Chest: lung chavira clear to auscultation Heart: RRR, no murmur Abdomen: non-distended, no tenderness to palpation, +BS Labs: Labs Test 09/23/24 06:15 09/22/24 17:01 Range/Units White Blood Count 6.5 4.4-10.8 10^3/uL Red Blood Count 3.67 L 4.0-5.20 10^6/uL Hemoglobin 11.7 L 12.2-16.2 g/dL Hematocrit 35.7 #L 36.0-46.0 % Mean Corpuscular Volume 97.1 80.0-100.0 fL Mean Corpuscular Hemoglobin 31.7 28.0-32.0 pg Mean Corpuscular Hemoglobin Concent 32.7 32.0-36.0 g/dL Red Cell Distribution Width 14.9 H 11.8-14.3 % Platelet Count 259 140-450 10^3/uL Mean Platelet Volume 7.5 6.9-10.8 fL Neutrophils (%) (Auto) 62.0 37.0-80.0 % Lymphocytes (%) (Auto) 25.8 10.0-50.0 % Monocytes (%) (Auto) 8.9 0.0-12.0 % Eosinophils (%) (Auto) 3.0 0.0-7.0 % Basophils (%) (Auto) 0.3 0.0-2.0 % Neutrophils # (Auto) 4.1 1.6-8.6 10 ^3/uL Lymphocytes # (Auto) 1.7 0.4-5.4 10 ^3/uL Monocytes # (Auto) 0.6 0-1.3 10 ^3/uL Eosinophils # (Auto) 0.2 0-0.8 10 ^3/uL Basophils # (Auto) 0 0-0.2 10 ^3/uL Nucleated Red Blood Cells 0.1 % Sodium Level 144 136-145 mmol/L Potassium Level 4.2 3.5-5.1 mmol/L Chloride Level 110 H 98-107 mmol/L Carbon Dioxide Level 25 20-31 mmol/L Anion Gap 9 5-15 Blood Urea Nitrogen 13 9-23 mg/dL Creatinine 0.55 0.550-1.02 mg/dL Glomerular Filtration Rate Calc 94 >90 mL/min BUN/Creatinine Ratio 23.6 H 10.0-20.0 Serum Glucose 86 74-106 mg/dL Calcium Level 9.4 8.7-10.4 mg/dL Total Bilirubin 0.5 0.2-1.0 mg/dL Aspartate Amino Transferase (AST) 21 13-40 U/L Alanine Aminotransferase (ALT) 14 7-40 U/L Prothrombin Time 10.9 9.3-11.8 sec Prothrombin Time INR 1.03 0.9-1.15 Activated Partial Thromboplast Time 25.5 24.5-34.5 SEC Imaging: CT abdomen pelvis IMPRESSION: 1. Severe descending and sigmoid colon diverticulosis without evidence of diverticulitis.Slightly irregular liver contour 2. Suggestive of developing cirrhosis. No hepatic steatosis or discrete hepatic lesion. No evidence of portal hypertension. Abdominal ultrasound IMPRESSION: No sonographic evidence of gallstones or acute cholecystitis. Hepatic steatosis. Hepatic cirrhosis. Assessment: GI bleed Diverticulosis Hepatic steatosis Hepatic cirrhosis Plan: Discussed with Dr. Badillo We will continue to monitor patient Advance diet as tolerated Outpatient GI follow-up recommended Discussed plan with patient and family at bedside and RN Thank you for this consult Date of Service: September 23, 2024 Billing Provider: JACINTA BENNETT Common Visit Codes: CONSULT ONLY Consultation Codes: [id number] CONSULT <60MIN JACINTA BENNETT September 23, 2024 14:20
--- NOTE | 2024-09-23 19:52 | DVHPNRES ---
Progress Note Date Seen: September 23, 2024 Resident Creating Document: RONIT VILLAFAAN RESIDENT Medical Necessity Reason Pt with a Central, PICC or Fol: No Subjective Review of Systems Patient seen and examined at bedside Patient came to the hospital with a chief complaint of dark stool, bleeding from lower GI. No active bleeding at this point No bowel movement today No abdominal pain today. Denying any other complaints. Objective vital signs Vital Sign Date Time Temp Pulse Resp B/P (MAP) Pulse Ox O2 Delivery O2 Flow Rate FiO2 09/23/24 16:50 98.2 83 16 142/69 (93) 95 98.2 09/23/24 08:00 Room Air* 0 21 Total Intake and Output 09/22/24 09/22/24 09/23/24 15:00 23:00 07:00 Intake Total 0 ml Balance 0 ml medications Current Medications Medications Dose Ordered Sig/Avinash Route Start Time Stop Time Status Last Admin Dose Admin Pantoprazole Sodium 40 mg DAILY IV 09/23/24 10:00 09/23/24 10:28 40 MG Ondansetron HCl 4 mg Q4HP PRN IV 09/22/24 19:30 Amlodipine Besylate 10 mg DAILY PO 09/24/24 10:00 Examination General Appearance: Cooperative. Well developed. Well nourished. NAD Head Exam: Normal inspection Neck Exam: Normal inspection. Non-tender. Normal alignment Pulmonary/Respiratory: Chest non-tender. Clear bilateral breath sounds Cardiovascular/Chest: Regular rate and rhythm. No murmurs. No JVD. Peripheral Pulses: 2+ Radial (R). 2+ Radial (L). 2+ Pedal (R). 2+ Pedal (L) Abdominal Exam: Normal bowel sounds. Soft. Nontender. No hepatospenomegaly. No masses Ankle Exam: Negative ankle edema Lower extremities: Negative lower extremity edema Neuro/Mental Status: A&O x4. Coherent Thoughts/Psych: Normal thought pattern. Appropriate mood and affect. Good judgement and insight Appearance: In no acute distress Skin Exam: Normal inspection. Normal color. Warm. Dry laboratory and microbiology Laboratory Tests 09/23/24 06:15 Test 09/23/24 06:15 Range/Units Serum Glucose 86 74-106 mg/dL Problem List/Assessment/Plan Problem List/Assessment/Plan Lower GI bleed ? AV malformation/diverticulosis Liver cirrhosis Hepatic steatosis Obesity BMI 32.8 kg/m2 ? Iron-deficiency anemia Plan/recommendation -continue to monitor H&H, patient had similar symptoms one year ago. Underwent colonoscopy. Date 06/18/2023 POSTOPERATIVE DIAGNOSES: 1. Moderate to severe sigmoid diverticular disease with some old blood clots and some liquid blood noted in this area but no clear-cut source of active bleeding could be identified at this time 2. Otherwise normal examination up to the cecum with no fresh or old blood noted in the right colon of the transverse colon area, the residual blood and a few clots were noted in the sigmoid 3. 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 -clear liquid diet, advanced as per toleration. -liver ultrasound showed liver cirrhosis. Screening with hepatitis panel and AFP. -outpatient follow-up with GI for monitoring of liver cirrhosis. Evaluate for EGD in outpatient setting. -Protonix 40 mg p.o. daily -no DVT prophylaxis given high-risk for bleed Goals of care discussed greater than 24 minutes, full code status. Plan discussed with Dr. William Plan discussed with: Patient, Other My Orders My Orders Orders - RONIT VILLAFANA RESIDENT Procedure Category Date Status Time Stool Occult Blood LAB 09/23/24 Logged 08:39 Amlodipine Tablet PHA 09/24/24 In Process (Norvasc Tablet) 10:00 LIVER US 09/23/24 Resulted 10:14 Date of Service: September 23, 2024 Billing Provider: BRANDAN WILLIAM MD Common Visit Codes: [id number] INP/OBS CARE(HIGH) RONIT VILLAFANA September 23, 2024 19:52 BRANDAN WILLIAM MD September 23, 2024 23:03
[2024-09-24 01:00] VITALS: BP 114/63; PULSE 73; RESP 17; TEMP 97.9; O2SAT 95
[2024-09-24 04:51] VITALS: BP 101/68; PULSE 71; RESP 16; TEMP 98.4; O2SAT 97
[2024-09-24 06:27] LABS: INR 1.05 (0.9-1.15); Partial Thromboplastin Time 26.2 SEC (24.5-34.5); Prothrombin Time 11.1 sec (9.3-11.8)
[2024-09-24 06:35] LABS: Alanine Aminotransferase 12 U/L (7-40); Albumin 4.1 g/dL (3.2-4.8); Alkaline Phosphatase 98 U/L (46-116); Anion Gap 10 (5-15); Aspartate Aminotransferase 21 U/L (13-40); BUN/Creatinine Ratio 15.7 (10.0-20.0); Bilirubin, Total 0.6 mg/dL (0.2-1.0); Blood Urea Nitrogen 11 mg/dL (9-23); Calcium 9.2 mg/dL (8.7-10.4); Carbon Dioxide 22 mmol/L (20-31); Chloride 107 mmol/L (98-107); Glucose 85 mg/dL (74-106); Potassium 4.2 mmol/L (3.5-5.1); Sodium 139 mmol/L (136-145); Total Protein 6.7 g/dL (5.7-8.2)
[2024-09-24 07:55] VITALS: RESP 18
[2024-09-24] MEDS: amLODIPine BESYLATE 5 MG TAB PO SCH (08:41)
[2024-09-24 08:54] VITALS: BP 139/78; PULSE 74; RESP 18; TEMP 98; O2SAT 97
[2024-09-24 11:07] LABS: Basophils # (auto) 0 10 ^3/uL (0-0.2); Basophils % (auto) 0.2 % (0.0-2.0); Eosinophils # (auto) 0.1 10 ^3/uL (0-0.8); Eosinophils % (auto) 1.7 % (0.0-7.0); Hematocrit 39.3 % (36.0-46.0); Hemoglobin 12.9 g/dL (12.2-16.2); Lymphocytes # (auto) 1.2 10 ^3/uL (0.4-5.4); Lymphocytes % (auto) 17.3 % (10.0-50.0); Mean Corpuscular Hemoglobin 31.4 pg (28.0-32.0); Mean Corpuscular Hgb Conc. 32.9 g/dL (32.0-36.0); Mean Corpuscular Volume 95.4 fL (80.0-100.0); Monocytes # (auto) 0.7 10 ^3/uL (0-1.3); Monocytes % (auto) 10.7 % (0.0-12.0); Neutrophils # (auto) 4.7 10 ^3/uL (1.6-8.6); Neutrophils % (auto) 70.1 % (37.0-80.0); Platelet Count (auto) 314 10^3/uL (140-450); Red Blood Cells 4.12 10^6/uL (4.0-5.20); Red Cell Distribution Width 14.6 % (11.8-14.3); White Blood Cell 6.7 10^3/uL (4.4-10.8)
[2024-09-24 11:08] LABS: Hepatitis A Ab IgM Negative; Hepatitis B Core IgM Negative (Negative); Hepatitis B Surface Antigen Negative (Negative); Hepatitis C Antibody Negative (Negative)
[2024-09-24 12:15] VITALS: BP 130/70; PULSE 82; RESP 20; TEMP 97.6; O2SAT 95
--- NOTE | 2024-09-24 12:52 | DVHPN2 ---
Progress Note - Dictate Date Seen: September 24, 2024 Medical Necessity Reason Pt with a Central, PICC or Fol: No Subjective Patient seen and examined at bedside ;Resting comfortably H&H stable with a hemoglobin of 12.6 No active bleeding at this point No bowel movement today No abdominal pain today. Denying any other complaints. vital signs Vital Sign Date Time Temp Pulse Resp B/P (MAP) Pulse Ox O2 Delivery O2 Flow Rate FiO2 09/24/24 12:15 97.6 82 20 130/70 (90) 95 97.6 09/24/24 07:55 Room Air* 0 21 Total Intake and Output 09/23/24 09/23/24 09/24/24 15:00 23:00 07:00 Intake Total 452 ml 990 ml 600 ml Balance 452 ml 990 ml 600 ml medications Current Medications Medications Dose Ordered Sig/Avinash Route Start Time Stop Time Status Last Admin Dose Admin Pantoprazole Sodium 40 mg DAILY IV 09/23/24 10:00 09/24/24 08:40 40 MG Ondansetron HCl 4 mg Q4HP PRN IV 09/22/24 19:30 Amlodipine Besylate 10 mg DAILY PO 09/24/24 10:00 09/24/24 08:41 10 MG objective General: NAD, AAOX3 Chest: lung chavira clear to auscultation Heart: RRR, no murmur Abdomen: non-distended, no tenderness to palpation, +BS laboratory and microbiology Laboratory Tests 09/24/24 10:26 09/24/24 05:27 Test 09/24/24 05:27 Range/Units Serum Glucose 85 74-106 mg/dL Problems(with codes): (1) Lower GI bleed (2) Diverticulosis Prognosis PLAN Advance diet as tolerated;Supportive care Discharge planning as per hospitalist Outpatient GI follow-up recommended Discussed plan with patient and family at bedside Plan discussed with: Patient, Other (Madelyn Sánchez) LILLIAN PONCE MD September 24, 2024 12:52
--- NOTE | 2024-09-24 16:21 | DVHDSRES ---
Discharge Summary Date of Admission Resident Creating Document: RONIT VILLAFANA RESIDENT September 22, 2024 at 19:21 Date of Discharge: September 24, 2024 Admitting Diagnosis lower GI bleed Labs/Diagnostic Data: Laboratory Results Test 09/24/24 10:26 09/24/24 05:27 White Blood Count 6.7 10^3/uL (4.4-10.8) Red Blood Count 4.12 10^6/uL (4.0-5.20) Hemoglobin 12.9 g/dL (12.2-16.2) Hematocrit 39.3 % (36.0-46.0) Mean Corpuscular Volume 95.4 fL (80.0-100.0) Mean Corpuscular Hemoglobin 31.4 pg (28.0-32.0) Mean Corpuscular Hemoglobin Concent 32.9 g/dL (32.0-36.0) Red Cell Distribution Width 14.6 % (11.8-14.3) Platelet Count 314 10^3/uL (140-450) Mean Platelet Volume 7.6 fL (6.9-10.8) Neutrophils (%) (Auto) 70.1 % (37.0-80.0) Lymphocytes (%) (Auto) 17.3 % (10.0-50.0) Monocytes (%) (Auto) 10.7 % (0.0-12.0) Eosinophils (%) (Auto) 1.7 % (0.0-7.0) Basophils (%) (Auto) 0.2 % (0.0-2.0) Neutrophils # (Auto) 4.7 10 ^3/uL (1.6-8.6) Lymphocytes # (Auto) 1.2 10 ^3/uL (0.4-5.4) Monocytes # (Auto) 0.7 10 ^3/uL (0-1.3) Eosinophils # (Auto) 0.1 10 ^3/uL (0-0.8) Basophils # (Auto) 0 10 ^3/uL (0-0.2) Nucleated Red Blood Cells 0.0 % Hemoglobin A1c 5.4 % A1C (<5.7) Ferritin 17.5 ng/mL (10-291) Prothrombin Time 11.1 sec (9.3-11.8) Prothrombin Time INR 1.05 (0.9-1.15) Activated Partial Thromboplast Time 26.2 SEC (24.5-34.5) Sodium Level 139 mmol/L (136-145) Potassium Level 4.2 mmol/L (3.5-5.1) Chloride Level 107 mmol/L (98-107) Carbon Dioxide Level 22 mmol/L (20-31) Anion Gap 10 (5-15) Blood Urea Nitrogen 11 mg/dL (9-23) Creatinine 0.70 mg/dL (0.550-1.02) Glomerular Filtration Rate Calc 88 mL/min (>90) BUN/Creatinine Ratio 15.7 (10.0-20.0) Serum Glucose 85 mg/dL (74-106) Calcium Level 9.2 mg/dL (8.7-10.4) Total Bilirubin 0.6 mg/dL (0.2-1.0) Aspartate Amino Transferase (AST) 21 U/L (13-40) Alanine Aminotransferase (ALT) 12 U/L (7-40) Alkaline Phosphatase 98 U/L (46-116) Total Protein 6.7 g/dL (5.7-8.2) Albumin 4.1 g/dL (3.2-4.8) Hepatitis A IgM Antibody Negative Hepatitis B Surface Antigen Negative (Negative) Hepatitis B Core IgM Antibody Negative (Negative) Hepatitis C Antibody Negative (Negative) Other Laboratory Tests 09/24/24 10:26 09/24/24 05:27 Brief Hx & Hospital Course: Patient is 79-year-old female with past medical history of diverticulosis with lower GI bleed, 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 Patient admitted to the hospital for GI bleed. Patient was continued monitoring for H&H for active GI bleed, gastroenterology consultation was done. Given no active GI bleed at this point, history of colonoscopy on 06/18/2023, continuous H&H was monitor which was non trending. Last hemoglobin was 12.9 g/dL. GI recommendation was to follow with primary care physician and GI in outpatient setting. GI referral has been requested. Continue Protonix 40 mg daily, given liver ultrasound showed hepatic steatosis, progression to liver cirrhosis, patient will need outpatient GI follow-up for further evaluation as well. Patient agreed with discharge plan and advised to follow with primary care physician and GI in outpatient setting. Patient has been discharged to home. Physical examination on discharge General Appearance: Cooperative. Well developed. Well nourished. NAD Head Exam: Normal inspection Neck Exam: Normal inspection. Non-tender. Normal alignment Pulmonary/Respiratory: Chest non-tender. Clear bilateral breath sounds Cardiovascular/Chest: Regular rate and rhythm. No murmurs. No JVD. Peripheral Pulses: 2+ Radial (R). 2+ Radial (L). 2+ Pedal (R). 2+ Pedal (L) Abdominal Exam: Normal bowel sounds. Soft. Nontender. No hepatospenomegaly. No masses Ankle Exam: Negative ankle edema Lower extremities: Negative lower extremity edema Neuro/Mental Status: A&O x4. Coherent Thoughts/Psych: Normal thought pattern. Appropriate mood and affect. Good judgement and insight Appearance: In no acute distress Skin Exam: Normal inspection. Normal color. Warm. Dry Condition at Discharge: Stable Final Diagnosis/Problems List Lower GI bleed ? AV malformation/diverticulosis Liver cirrhosis Hepatic steatosis Obesity BMI 32.8 kg/m2 Discharge Disposition: Home Discharge Instruct/Medications Diet: Regular Activity: No Restrictions, As Tolerated Follow Up/Referral: -follow up with pcp in 2 weeks -send referal to GI Medications: -Continue home medications Discharge Statement: "Patient was advised to return to the ER or call 911 if any headaches, dizziness, shortness of breath, chest pain, abdominal pain, bleeding, fevers, or worsening of medical condition. Patient was counseled about treatment plan, medications, possible side effects, patientverbalized understanding. All questions were answered to the best of my ability. This discharge took greater then 30 minutes in planning, reviewing documentation, counseling the patient, and discussing with other team members." ASSESSMENT ASSESSMENT Assessment Lower GI bleed hepatic steatosis Date of Service: September 24, 2024 Billing Provider: BRANDAN WINTERS MD Common Visit Codes: [id number] DISCH DAY >30min RONIT VILLAFANA September 24, 2024 16:21 BRANDAN WINTERS MD September 25, 2024 05:31
== END 2024-09-24 14:40 | disposition home or self-care (01) | DRG 378 ==
LOC: ER 16:30 → OVERFLOW 19:21 → WEST WING 22:52
PROVIDERS: ADMIT Internal Medicine; ATTEND Internal Medicine
DX: K57.31 Diverticulosis of large intestine without perforation or abscess with bleeding (principal); Q27.30 Arteriovenous malformation, site unspecified; K74.60 Unspecified cirrhosis of liver; E66.9 Obesity, unspecified; K76.0 Fatty (change of) liver, not elsewhere classified; J44.9 Chronic obstructive pulmonary disease, unspecified; E78.5 Hyperlipidemia, unspecified; I10 Essential (primary) hypertension; Z79.2 Long term (current) use of antibiotics; Z68.32 Body mass index [BMI] 32.0-32.9, adult; Z98.51 Tubal ligation status; Z79.899 Other long term (current) drug therapy
CPT/HCPCS: 36415; 74176; 76705; 80048; 80053; 80074; 82105; 82247; 82728; 83036; 84450; 84460; 85014; 85018; 85025; 85610; 85730; 86850; 86900; 86901; G0378; J2470

== ENCOUNTER 2025-01-17 09:22 | Outpatient (CLI) | payer OTHER ==
[~2025-01-17 09:22] MED LIST changes: -AZIT-185 PO; -METH4PAK PO; -PRAV20TA3 PO
== END 2025-01-17 17:00 | disposition home or self-care (01) ==
LOC: LAB 09:22
PROVIDERS: ATTEND Internal Medicine Pulmonary Disease
DX: J84.9 Interstitial pulmonary disease, unspecified (principal)
CPT/HCPCS: 86038; 86200; 86431

== ENCOUNTER 2025-01-24 08:49 | Outpatient (CLI) | payer OTHER | END 2025-01-24 17:00 | disposition home or self-care (01) | LOC: RT 08:49 | PROVIDERS: ATTEND Internal Medicine Pulmonary Disease | DX: J44.9 Chronic obstructive pulmonary disease, unspecified (principal); J84.9 Interstitial pulmonary disease, unspecified; R06.00 Dyspnea, unspecified; R91.8 Other nonspecific abnormal finding of lung field; Z79.899 Other long term (current) drug therapy | CPT/HCPCS: 94060; 94618; 94729 ==